=== PATIENT | female | born 1960 | race Caucasian/White ===

== ENCOUNTER 2016-11-24 09:38 | Emergency (ER) | payer SELFPAY ==
[~2016-11-24] VITALS: Ht 167.6 cm; Wt 46.5 kg
[~2016-11-24 09:38] MED LIST: ADV50050 INHALATION; ALBU8.5H3 INH; AZIT1PAC12 PO; AZIT250T94 PO; AZIT500T3 PO; CLIN-73 PO; FLUC150T17 PO; FLUT12HF2 IH; GUAI118L94 PO; IBUP-1542 PO; IBUP800T25 PO; NYST1000 PO; OXYC-281 PO; PRED20TA PO; RTPRO NEB; TIOT18CA INHALATION; TYL500 PO
[2016-11-24 09:42] VITALS: Ht 167.6 cm; Wt 46.5 kg
[2016-11-24] MEDS ORDERED: ALBUTEROL 0.5% (NEB) 2.5 MG/0.5 ML AMP NEB STA (10:01)
[2016-11-24] MEDS ORDERED: IPRATROPIUM (NEB) 0.5 MG/2.5 ML AMP NEB STA (10:01)
--- NOTE | 2016-11-24 10:06 | ERD ---
ER Documentation Chief Complaint Date/Time DATE: 11/24/16 TIME: 10:[address] , cough and CWP X 1 week, hx of COPD sats 92%. HPI 56-year-old female with history of COPD, smoking comes emergency room sore throat, cough and shortness of breath. Patient states she began having a cough and sore throat a week ago, has been using her inhalers however ran out of albuterol. Patient states that her sore throat is causing her to have pain in the center of her chest. She is not had any fevers, chills. ROS All systems reviewed and are negative except as per history of present illness. Medications Home Meds Active Scripts Promethazine/Phenyleph/Codeine (Zgciokwwjswc-NK-Maethbe Syrup) 118 Ml Syrup, 1- 2 TSP PO Q6, #4 OZ Prov:SHONNA RODRIGUEZ PA-C 11/24/16 Albuterol Sulfate* (Proair HFA*) 8.5 Gm Hfa.aer.ad, 2 PUFF INH Q4, #1 INHALER Prov:SHONNA RODRIGUEZ PA-C 11/24/16 Prednisone* (Prednisone*) 20 Mg Tab, 40 MG PO DAILY for 4 Days, TAB Prov:SHONNA RODRIGUEZ PA-C 11/24/16 Ibuprofen* (Motrin*) 600 Mg Tab, 600 MG PO Q6H Y for PAIN AND OR ELEVATED TEMP, #30 TAB Prov:REYES GONZALEZ NP 05/11/16 Fluconazole* (Diflucan*) 150 Mg Tablet, 150 MG PO ONCE, #1 TAB Prov:REYES GONZALEZ NP 05/11/16 Nystatin (Nystatin) 100,000 Unit/1 Ml Oral.susp, 4 ML PO QID for 7 Days, OZ Swish and swallow Prov:REYES GONZALEZ NP 05/11/16 Azithromycin* (Zithromax*) 250 Mg Tablet, 250 MG PO .ZPACK DIRECTED, #6 TAB TAKE 500 MG (2 TABS) THE FIRST DAY THEN 250 MG (1 TAB) DAYS 2-5 Prov:REYES GONZALEZ NP 05/11/16 Oxycodone Hcl-Acetaminophen* (Percocet*) 5-325 Mg Tablet, 1 TAB PO TID for PAIN , #9 TAB Prov:BARBARA HERNANDEZ MD 05/04/16 Albuterol Sulfate* (Proair HFA*) 8.5 Gm Hfa.aer.ad, 2 PUFF INH Q6H Y for WHEEZING AND SOB, #1 INHALER Prov:BARBARA HERNANDEZ MD 05/04/16 Azithromycin* (Zithromax*) 500 Mg Tablet, 500 MG PO DAILY for 5 Days, TAB Prov:BARBARA HERNANDEZ MD 05/04/16 Prednisone* (Prednisone*) 20 Mg Tab, 20 MG PO BID for 5 Days, TAB Prov:BARBARA HERNANDEZ MD 05/04/16 Salmeterol Xinaf-Fluticasone* (Advair*) 500/50 Diskus Inhaler, 1 INH INHALATION BID, #1 INHALER Prov:REYES GONZALEZ NP 04/19/16 Tiotropium [place]* (Spiriva*) 18 Mcg Cap.w.dev, 1 CAP INHALATION DAILY, #30 CAP Prov:REYES GONZALEZ NP 04/19/16 Albuterol Sulfate* (Proair HFA*) 8.5 Gm Hfa.aer.ad, 2 PUFF INH Q4H Y for WHEEZING AND SOB, #1 INHALER Prov:REYES GONZALEZ NP 04/19/16 Albuterol Sulfate* (Proventil* Neb) 0.083% Neb, 2.5 MG NEB Q4 Y for SHORTNESS OF BREATH, #30 EA Prov:SHANEKA POLLARD 03/22/16 Albuterol Sulfate* (Proair HFA*) 8.5 Gm Hfa.aer.ad, 2 PUFF INH Q4, #1 INHALER Prov:SHANEKA POLLARD 03/22/16 Salmeterol Xinaf-Fluticasone* (Advair HFA*) 115/21 Aerosol Inhaler, 2 INH IH BID , #1 INHALER Prov:SHANEKA POLLARD 03/22/16 Prednisone* (Prednisone*) 20 Mg Tab, 40 MG PO DAILY for 4 Days, TAB Prov:SHANEKA POLLARD C 03/22/16 Clindamycin Hcl* (Clindamycin Hcl*) 300 Mg Capsule, 300 MG PO QID for 7 Days, CAP Prov:CHRISTIANA OLIVEROSC 02/22/16 Prednisone* (Prednisone*) 20 Mg Tab, 40 MG PO DAILY for 4 Days, TAB Prov:OLIVEROSCHRISTIANA Bushra WATTS 02/22/16 Albuterol Sulfate* (Proventil* Neb) 0.083% Neb, 2.5 MG NEB Q4 Y for SHORTNESS OF BREATH, #30 EA Prov:OLIVEROSCHRISTIANA Tomlinson PA-C 02/22/16 Azithromycin* (Azithromycin*) 1 G/Pkt Packet, 1 GM PO ONCE, #1 PACKET Prov:ARLINCHRISTIANA Bushra WATTS 02/22/16 Azithromycin* (Zithromax*) 250 Mg Tablet, 250 MG PO .ZPACK DIRECTED, #6 TAB TAKE 500 MG (2 TABS) THE FIRST DAY THEN 250 MG (1 TAB) DAYS 2-5 Prov:CELESTE GONZALEZ DO 01/18/16 Ibuprofen* (Motrin*) 800 Mg Tab, 800 MG PO Q6H Y for PAIN AND OR ELEVATED TEMP, #30 TAB Prov:CELESTE GONZALEZ DO 01/18/16 Acetaminophen* (Tylenol*) 500 Mg Tab, 500 MG PO Q4H Y for MILD PAIN LEVEL 1-3, # 30 TAB Prov:DAVID ABRAMS PA-C 01/16/16 Guaifenesin-Codeine Phosphate* (Guaifenesin* with Codeine Liq) 120 Ml Liquid, 5 ML PO Q4H for COUGH, #120 ML Prov:DAVID ABRAMS PA-C 01/16/16 Prednisone* (Prednisone*) 20 Mg Tab, 40 MG PO DAILY for 4 Days, TAB Prov:DAVID ABRAMS PA-C 01/16/16 Allergies Allergies: Coded Allergies: Penicillins (Verified Allergy, Unknown, 11/24/16) PMhx/Soc History of Surgery: Yes (appendectomy,Gilmer Mammoplasty) Anesthesia Reaction: No Hx Neurological Disorder: No Hx Respiratory Disorders: Yes (Asthma) Hx Cardiac Disorders: No Hx Psychiatric Problems: No Hx Miscellaneous Medical Probl: Yes (Bronchitis,Menopause(2012); copd) Hx Alcohol Use: Yes (Social) Hx Substance Use: No (Used to during her younger days) Hx Tobacco Use: Yes (quit 10 months ago 3 to 4 sticks/day) Smoking Status: Current every day smoker Physical Exam Vitals Vital Signs Date Time Temp Pulse Resp B/P Pulse Ox O2 Delivery O2 Flow Rate FiO2 11/24/16 11:52 98.3 77 113/55 92 Room Air 11/24/16 10:23 78 18 94 21 11/24/16 09:42 97.4 77 18 120/76 92 Physical Exam General: Well-developed, well-nourished. In mild respiratory distress. HEENT: Head is normocephalic, atraumatic. No scleral icterus. Pupils are equal , round, and reactive. Oral mucous membranes are moist. No pharyngeal erythema. Neck: Supple. Nontender. Lungs: Clear to auscultation. Normal air movement. Heart: Regular rate and rhythm. S1 and S2 are normal. No murmurs, gallops, or rubs. Abdomen: Soft, nontender, nondistended. Bowel sounds are normoactive. Extremities: No clubbing or cyanosis. Normal pulses. Moving extremities x 4. No weakness. Neurologic: Alert and oriented 3. No focal deficits. Skin: Normal turgor. No rash or lesions. Results 24 hrs Current Medications Medications (Trade) Dose Ordered Sig/Anders Route PRN Reason Start Time Stop Time Status Last Admin Dose Admin Albuterol (Proventil 0.5% (Neb)) 10 mg ONCE STAT NEB 11/24/16 10:01 11/24/16 10:04 DC 11/24/16 10:18 Ipratropium [place] (Atrovent 0.02% (Neb)) 1 mg ONCE STAT NEB 11/24/16 10:01 11/24/16 10:04 DC 11/24/16 10:19 Methylprednisolone Sodium Succinate (Solu-Medrol) 125 mg ONCE ONCE IM 11/24/16 10:30 11/24/16 10:31 DC 11/24/16 10:13 Chest X-ray 1V Interpreted by me as well as radiologist: Soft Tissue: No acute abnormalities Bones: No acute abnormalities Mediastinum/Cardiac Silhouette/Lungs: No acute abnormalities Procedures/MDM ED course: Patient was given Solu-Medrol 125 mg IM, breathing treatment albuterol 10 mg as well as Atrovent 1 mg was administered. MDM: 56-year-old female with a history of COPD comes in with another exacerbation to the sore throat and cough. Patient's sore throat and cough symptoms are likely from a viral upper respiratory infection. She reports history of small amount of blood-tinged sputum 2 days ago that is likely from sloughing, I doubt tuberculosis at this time. She was given an albuterol breathing treatment as well as Atrovent and Solu-Medrol in the emergency room and reports to be having significant improvement of her symptoms. EKG was also reviewed without any signs of ischemia or ST elevations are concerning for an acute coronary syndrome. Differentials also include pneumonia, chest x-ray was normal at this time. patient's oxygen saturation is stable, as she is a chronic COPD patient. Differentials include COPD, pneumonia, CHF, ACS. She is feeling much better at this time, vitals are stable, and can safely be managed on an outpatient basis. Smoking Cessation Therapy: Pt. was lectured for greater than 3 minutes on the health risks of continued smoking and the benefits of cessation. Departure Diagnosis: Primary Impression: COPD (chronic obstructive pulmonary disease) Additional Impressions: URI (upper respiratory infection) Encounter for smoking cessation counseling Condition: Good SHONNA RODRIGUEZ PA-C Nov 24, 2016 10:06 SHONNA RODRIGUEZ PA-C Nov 24, 2016 10:06
[2016-11-24] MEDS ORDERED: METHYLPREDNISOLONE 125 MG INJ IM ONE (10:30)
--- NOTE | 2016-11-24 11:25 | RADRPT ---
PROCEDURE: XR Chest. CLINICAL INDICATION: COPD. Dyspnea. TECHNIQUE: Single frontal chest x-ray. COMPARISON: Chest x-ray dated 02/21/2016 FINDINGS: The lungs are clear. No focal opacification is seen. The cardiomediastinal silhouette is unremarka ble. The osseous structures are unremarkable. IMPRESSION: 1. There is no acute cardiopulmonary process. 2. No significant change when compared to the prior study. RPTAT: HMJB .Barak Godinez MD, MD Date Time Electronically viewed and signed by .Barak Godinez MD, MD on 11/24/2016 11:25 .B/
[2016-11-24] MEDS ORDERED: PRED20TA PO (11:41)
[2016-11-24] MEDS ORDERED: TIOT18CA INHALATION (11:41)
[2016-11-24] MEDS ORDERED: ALBU8.5H3 INH (11:41)
[2016-11-24] MEDS ORDERED: ADV10050 INHALATION (11:41)
[2016-11-24] MEDS ORDERED: PROM118S PO (11:47)
[2016-11-24 11:52] VITALS: BP 113/55; PULSE 77; TEMP 98.3
== END 2016-11-24 12:02 | disposition home or self-care (01) ==
LOC: FTE 09:38
DX: J44.1 Chronic obstructive pulmonary disease with (acute) exacerbation (principal); J06.9 Acute upper respiratory infection, unspecified; F17.210 Nicotine dependence, cigarettes, uncomplicated; Z71.6 Tobacco abuse counseling
CPT/HCPCS: 71010; 93005; 94644; 96372; 99284; J2930

== ENCOUNTER 2018-04-26 00:09 | Inpatient (IN) | END 2018-05-21 20:15 | disposition home or self-care (01) | DRG 190 ==

== ENCOUNTER 2018-10-12 03:36 | Inpatient (IN) | END 2018-10-19 20:10 | disposition home or self-care (01) | DRG 190 ==

== ENCOUNTER 2018-11-22 18:50 | Inpatient (IN) | payer OTHER ==
[~2018-11-22] VITALS: Ht 165.1 cm; Wt 50.1 kg
[~2018-11-22 18:50] MED LIST changes: -ALBU8.5H3 INH; +ALBU8.5H8 INH; -AZIT1PAC12 PO; -AZIT250T94 PO; -AZIT500T3 PO; -CLIN-73 PO; -FLUC150T17 PO; -FLUT12HF2 IH; -GUAI118L94 PO; -IBUP-1542 PO; -IBUP800T25 PO; -NYST1000 PO; -OXYC-281 PO; -PRED20TA PO; +PRED50TA PO; -RTPRO NEB; +TIOT18CA INH; -TIOT18CA INHALATION; -TYL500 PO; +ZOLP5TAB PO
[2018-11-22 23:30] VITALS: BP 116/69; PULSE 104; RESP 16
[2018-11-23] MEDS ORDERED: PANT40TA3 PO (00:01)
[2018-11-23 00:20] VITALS: Ht 165.1 cm; Wt 50.1 kg
[2018-11-23] MEDS: ZOLPIDEM 5 MG TAB PO PRN ×2 (00:56→20:55)
[2018-11-23] MEDS ORDERED: NACL 0.9% 3 ML SYG IV SCH (01:00)
[2018-11-23] MEDS ORDERED: NON-FORMULARY/PATIENT OWN MED (Salmeterol Xinaf-Fluticasone* (Advair*) 1 INH) INHALATION SCH (01:00)
[2018-11-23] MEDS ORDERED: ONDANSETRON 4 MG INJ IV PRN (01:00)
[2018-11-23] MEDS ORDERED: ACETAMINOPHEN 325 MG TAB PO PRN (01:00)
[2018-11-23] MEDS ORDERED: ALBUTEROL/IPRATROPIUM (NEB) 3 ML AMP HHN PRN ×2 (01:00)
[2018-11-23 01:45] VITALS: BP 98/55; PULSE 115; RESP 18
--- NOTE | 2018-11-23 03:24 | NUR ---
ADMISSION NOTES : Received a direct admit from [facility] with chief complaint of SOB and COPD exacerbation.Diagnosed with Pneumonia. Patient is alert,oriented and ambulatory. Ushered to assigned room. Per EMT,patient's heart rate range from 112-116 beats/min. No complained of pain at this time but requesting for Ambien for sleeping. Routine admission assessment and questionnaires done, photos were taken per protocol. Specimen for nares was obtained and sent to the lab. Instructed to call fo assistance. Placed on fall precaution risk.All needs met and attended. Will continue to monitor.
--- NOTE | 2018-11-23 04:16 | HP ---
Date/Time of Note Date/Time of Note DATE: 11/23/18 TIME: 04:14 Assessment/Plan VTE Prophylaxis Pharmacological prophylaxis: heparin Lines/Catheters IV Catheter Type (from Nrs): Saline Lock Assessment/Plan Assessment/Plan 58-year-old female with a history of COPD, hep C, antitrypsin deficiency transferred from outside hospital for shortness of breath, secondary to COPD exacerbation and possibly pneumonia as well PLAN Supplemental oxygen, bronchodilators, steroid, IV antibiotic Chest x-ray Chest CT as needed HPI/ROS Admit Date/Time Admit Date/Time Nov 22, 2018 at 23:06 Hx of Present Illness This is a 58-year-old female with a history of COPD, hep C, antitrypsin deficiency who initially presented on outside hospital complaining of shortness of breath. Patient was diagnosed with pneumonia and COPD exacerbation. She was transferred to [facility] for insurance reason. Patient was admitted here for COPD exacerbation about a month and half ago. PMH/Family/Social Past Medical History Medications Current Medications IV Flush (NS 3 ml) 3 ml PER PROTOCOL IV ; Start 11/23/18 at 01:00 Ondansetron HCl (Zofran Inj) 4 mg Q6H PRN IV NAUSEA AND/OR VOMITING; Start 11/23/18 at 01:00 Acetaminophen (Tylenol Tab) 650 mg Q6H PRN PO PAIN LEVEL 1-3 OR FEVER; Start 11/23/18 at 01:00 Albuterol/ Ipratropium (Duoneb) 3 ml Q2H RESP THERAPY PRN HHN SHORTNESS OF BREATH; Start 11/23/18 at 01:00 Pantoprazole (Protonix Tab) 40 mg DAILY@0600 PO ; Start 11/23/18 at 06:00 Tiotropium [place] (Spiriva) 1 inh DAILY INH ; Start 11/23/18 at 09:00 Zolpidem Tartrate (Ambien) 5 mg QHS PRN PO INSOMNIA Last administered on 11/23/18at 00:56; Admin Dose 5 MG; Start 11/23/18 at 01:00 Miscellaneous Information 1 inh BID INHALATION ; Start 11/23/18 at 01:00; Status UNV Methylprednisolone Sodium Succinate (Solu-Medrol) 80 mg DAILY IV ; Start 11/23/18 at 09:00 Influenza Virus Vaccine Quadrival (Fluzone) 0.5 ml ONCE ONCE IM* ; Start 11/24/18 at 10:00; Stop 11/24/18 at 10:01 Coded Allergies: levofloxacin (Verified Allergy, Intermediate, 10/13/18) Red Rash at IV site Penicillins (Verified Allergy, Unknown, 04/25/18) Past Surgical History Past Surgical Hx: other Family History Significant Family History: no pertinent family hx Social History Smoking Status: Former smoker Exam/Review of Systems Vital Signs Vitals Vital Signs Date Temp Pulse Resp B/P (MAP) Pulse Ox O2 O2 Flow FiO2 Time Delivery Rate 11/23/18 98.2 115 18 98/55 (69) 93 01:45 Intake and Output 11/22/18 11/22/18 11/23/18 1515:00 23:00 07:00 IntakeIntake Total 100 ml BalanceBalance 100 ml Exam Exam Constitutional: other (no acute distress) Head: normocephalic Respiratory: other (slight decreased at bases) Cardiovascular: regular rate and rhythm Gastrointestinal: soft Extremities: normal pulses PMH/Family/Social Past Medical History Medical History: other (see hpi) Coded Allergies: No Known Drug Allergy (Verified Allergy, Unknown, 07/08/16) Past Surgical History Past Surgical Hx: other (see hpi) Family History Significant Family History: no pertinent family hx Social History Alcohol Use: other Smoking Status: Unknown if ever smoked Drug Use: other GAGAN MAYERS MD Nov 23, 2018 04:16
[2018-11-23] MEDS: PANTOPRAZOLE (EC) 40 MG TAB PO SCH (05:46)
[2018-11-23 07:26] VITALS: BP 97/57; PULSE 99; RESP 15
[2018-11-23] MEDS: METHYLPREDNISOLONE 125 MG INJ IV SCH (08:36)
[2018-11-23] MEDS: TIOTROPIUM 18 MCG CAPSULE INHA DEV INH SCH (08:38)
[2018-11-23] MEDS: AZITHROMYCIN 500MG/NS (PMX) 250 ML IVPB SCH (08:38)
[2018-11-23] MEDS ORDERED: FLUTICASONE/VILANTEROL 200-25 INH DEVICE INH SCH (09:00)
[2018-11-23 14:25] VITALS: BP 99/58; PULSE 91; RESP 15
[2018-11-23] MEDS ORDERED: morphine 2 MG INJ IV PRN (15:00)
--- NOTE | 2018-11-23 15:11 | PN ---
Date/Time of Note Date/Time of Note DATE: 11/23/18 TIME: 15:07 Assessment/Plan VTE Prophylaxis Risk score (from Ns)>0 risk: 1 SCD applied (from Ns): Yes Pharmacological prophylaxis: NA/contraindicated Pharm contraindication: low risk/ambulating Lines/Catheters [facility] Saline Lock Assessment/Plan Hospital Course 1. COPD exacerbation Patient with a history of antitrypsin deficiency Continue IV antibiotics and steroids Continue Spiriva and breathing treatments as needed Morphine for pleuritic pain 2. History of hep C No acute issues Prophylaxis: SCDs Result Diagram: 11/23/1862611/23/18626 Results 24hrs Laboratory Tests Test 11/23/18 06:27 White Blood Count 17.2 H Red Blood Count 4.28 Hemoglobin 13.4 Hematocrit 40.8 Mean Corpuscular Volume 95.3 Mean Corpuscular Hemoglobin 31.3 Mean Corpuscular Hemoglobin Concent 32.8 Red Cell Distribution Width 13.6 Platelet Count 173 Mean Platelet Volume 9.7 Immature Granulocytes % 1.300 H Neutrophils % 81.2 H Lymphocytes % 10.5 L Monocytes % 6.8 Eosinophils % 0.1 Basophils % 0.1 Nucleated Red Blood Cells % 0.0 Immature Granulocytes # 0.220 H Neutrophils # 14.0 H Lymphocytes # 1.8 Monocytes # 1.2 H Eosinophils # 0.0 Basophils # 0.0 Nucleated Red Blood Cells # 0.0 Sodium Level 144 Potassium Level 5.0 Chloride Level 108 Carbon Dioxide Level 30 Anion Gap 6 Blood Urea Nitrogen 24 H Creatinine 0.53 Est Glomerular Filtrat Rate mL/min > 60 Glucose Level 123 Calcium Level 10.3 H Phosphorus Level 3.6 Magnesium Level 2.3 Total Bilirubin 0.1 L Direct Bilirubin 0.00 Indirect Bilirubin 0.1 Aspartate Amino Transf (AST/SGOT) 49 H Alanine Aminotransferase (ALT/SGPT) 44 Alkaline Phosphatase 63 Total Protein 5.5 L Albumin 2.9 L Globulin 2.60 Albumin/Globulin Ratio 1.11 Subjective 24 Hr Interval Summary Respiratory: pleuritic pain, shortness of breath Exam/Review of Systems Vital Signs Vitals Vital Signs Date Temp Pulse Resp B/P (MAP) Pulse Ox O2 O2 Flow FiO2 Time Delivery Rate 11/23/18 98.4 91 15 99/58 (72) 92 Room Air 14:25 11/23/18 2.0 09:00 Intake and Output 11/22/18 11/22/18 11/23/18 1515:00 23:00 07:00 IntakeIntake Total 100 ml BalanceBalance 100 ml Exam Constitutional: alert, oriented Respiratory: clear to auscultation Cardiovascular: regular rate and rhythm Gastrointestinal: soft; No distended Musculoskeletal: nl extremities to inspection Medications Medications Current Medications IV Flush (NS 3 ml) 3 ml PER PROTOCOL IV ; Start 11/23/18 at 01:00 Ondansetron HCl (Zofran Inj) 4 mg Q6H PRN IV NAUSEA AND/OR VOMITING; Start 11/23/18 at 01:00 Acetaminophen (Tylenol Tab) 650 mg Q6H PRN PO PAIN LEVEL 1-3 OR FEVER; Start 11/23/18 at 01:00 Albuterol/ Ipratropium (Duoneb) 3 ml Q2H RESP THERAPY PRN HHN SHORTNESS OF BREATH; Start 11/23/18 at 01:00 Pantoprazole (Protonix Tab) 40 mg DAILY@0600 PO Last administered on 11/23/18at 05:46; Admin Dose 40 MG; Start 11/23/18 at 06:00 Tiotropium [place] (Spiriva) 1 inh DAILY INH Last administered on 11/23/18at 08:38; Admin Dose 1 INH; Start 11/23/18 at 09:00 Zolpidem Tartrate (Ambien) 5 mg QHS PRN PO INSOMNIA Last administered on 11/23/18at 00:56; Admin Dose 5 MG; Start 11/23/18 at 01:00 Methylprednisolone Sodium Succinate (Solu-Medrol) 80 mg DAILY IV Last administered on 11/23/18at 08:36; Admin Dose 80 MG; Start 11/23/18 at 09:00 Influenza Virus Vaccine Quadrival (Fluzone) 0.5 ml ONCE ONCE IM* ; Start 11/24/18 at 10:00; Stop 11/24/18 at 10:01 Azithromycin 250 ml @ 250 mls/hr DAILY IVPB Last administered on 11/23/18at 08:38; Admin Dose 250 MLS/HR; Start 11/23/18 at 09:00 Fluticasone/ Vilanterol (Breo Ellipta 200-25 Mcg Inh) 1 inh DAILY INH ; Start 11/23/18 at 09:00; Status Hold Morphine Sulfate (morphine) 2 mg Q4H PRN IV SEVERE PAIN LEVEL 7-10; Start 11/23/18 at 15:00 ALDO DARDEN Nov 23, 2018 15:11
[2018-11-23] MEDS: morphine SULFATE/PF (2 MG/2 ML) SYG IV PRN ×2 (15:25→19:20)
[2018-11-23] MEDS: CEFTRIAXONE 1 GM/50 ML (PMX) 50 ML IVPB SCH (17:15)
--- NOTE | 2018-11-23 18:24 | NUR ---
EOSS: PT STABLE THROUGHOUT SHIFT, ALL DUE MEDS GIVEN, HOURLY ROUNDING COMPLETED. WILL ENDORSE CARE OF PT TO ONCOMING GARMENT FITTER RN.
[2018-11-23 20:01] VITALS: BP 100/56; PULSE 74; RESP 16
[2018-11-24 02:17] VITALS: BP 103/61; PULSE 94; RESP 16
[2018-11-24] MEDS: PANTOPRAZOLE (EC) 40 MG TAB PO SCH (05:44)
--- NOTE | 2018-11-24 06:06 | NUR ---
EOSS: Patient remains stable. Ambien administered last night and slept most of the night. Denies any pain this shift. No other complaints at this time. Will endorse to morning nurse for continuity of care.
[2018-11-24 07:59] VITALS: BP 129/76; PULSE 75; RESP 18
[2018-11-24] MEDS: CEPASTAT LOZENGE MT PRN (09:44)
[2018-11-24] MEDS: AZITHROMYCIN 500MG/NS (PMX) 250 ML IVPB SCH (09:45)
[2018-11-24] MEDS: morphine SULFATE/PF (2 MG/2 ML) SYG IV PRN (09:45)
[2018-11-24] MEDS: TIOTROPIUM 18 MCG CAPSULE INHA DEV INH SCH (09:45)
[2018-11-24] MEDS: METHYLPREDNISOLONE 125 MG INJ IV SCH (09:53)
[2018-11-24] MEDS ORDERED: PROMETHAZINE/CODEINE 5ML CUP PO PRN (13:00)
[2018-11-24 14:00] VITALS: BP 125/75; PULSE 74; RESP 20
--- NOTE | 2018-11-24 14:30 | PN ---
Date/Time of Note Date/Time of Note DATE: 11/24/18 TIME: 14:28 Assessment/Plan VTE Prophylaxis Risk score (from Ns)>0 risk: 1 SCD applied (from Ns): Yes Pharmacological prophylaxis: NA/contraindicated Pharm contraindication: low risk/ambulating Lines/Catheters [facility] Saline Lock Urinary Cath still in place: No Assessment/Plan Hospital Course 1. COPD exacerbation Patient with persistent pleuritic chest pain Start Phenergan with codeine, continue morphine Patient with a history of antitrypsin deficiency Continue IV antibiotics and DC steroids Continue Spiriva and breathing treatments as needed 2. History of hep C No acute issues Prophylaxis: SCDs DC planning: Anticipate DC home tomorrow Result Diagram: 11/24/18 0611/24/18 0603 Results 24hrs Laboratory Tests Test 11/24/18 06:03 White Blood Count 15.3 H Red Blood Count 4.15 L Hemoglobin 12.9 Hematocrit 38.4 Mean Corpuscular Volume 92.5 Mean Corpuscular Hemoglobin 31.1 Mean Corpuscular Hemoglobin Concent 33.6 Red Cell Distribution Width 13.3 Platelet Count 151 Mean Platelet Volume 10.0 Immature Granulocytes % 2.000 H Neutrophils % 74.6 Lymphocytes % 14.3 L Monocytes % 8.7 Eosinophils % 0.1 Basophils % 0.3 Nucleated Red Blood Cells % 0.0 Immature Granulocytes # 0.310 H Neutrophils # 11.4 H Lymphocytes # 2.2 Monocytes # 1.3 H Eosinophils # 0.0 Basophils # 0.0 Nucleated Red Blood Cells # 0.0 Sodium Level 142 Potassium Level 4.2 Chloride Level 104 Carbon Dioxide Level 33 H Anion Gap 5 Blood Urea Nitrogen 28 H Creatinine 0.52 Est Glomerular Filtrat Rate mL/min > 60 Glucose Level 112 Calcium Level 10.0 Phosphorus Level 3.1 Magnesium Level 2.4 Subjective 24 Hr Interval Summary Respiratory: pleuritic pain Exam/Review of Systems Vital Signs Vitals Vital Signs Date Temp Pulse Resp B/P (MAP) Pulse Ox O2 O2 Flow FiO2 Time Delivery Rate 11/24/18 98.5 75 18 129/76 92 Room Air 07:59 (93) 11/23/18 2.0 09:00 Intake and Output 11/23/18 11/23/18 11/24/18 1515:00 23:00 07:00 IntakeIntake Total 850 ml 290 ml BalanceBalance 850 ml 290 ml Exam Constitutional: alert, oriented Respiratory: clear to auscultation Cardiovascular: regular rate and rhythm Gastrointestinal: soft; No distended Musculoskeletal: nl extremities to inspection Medications Medications Current Medications IV Flush (NS 3 ml) 3 ml PER PROTOCOL IV ; Start 11/23/18 at 01:00 Ondansetron HCl (Zofran Inj) 4 mg Q6H PRN IV NAUSEA AND/OR VOMITING; Start 11/23/18 at 01:00 Acetaminophen (Tylenol Tab) 650 mg Q6H PRN PO PAIN LEVEL 1-3 OR FEVER; Start 11/23/18 at 01:00 Albuterol/ Ipratropium (Duoneb) 3 ml Q2H RESP THERAPY PRN HHN SHORTNESS OF BREATH; Start 11/23/18 at 01:00 Pantoprazole (Protonix Tab) 40 mg DAILY@0600 PO Last administered on 11/24/18 05:44; Admin Dose 40 MG; Start 11/23/18 at 06:00 Tiotropium [place] (Spiriva) 1 inh DAILY INH Last administered on 11/24/18 09:45; Admin Dose 1 INH; Start 11/23/18 at 09:00 Zolpidem Tartrate (Ambien) 5 mg QHS PRN PO INSOMNIA Last administered on 11/23/18 20:55; Admin Dose 5 MG; Start 11/23/18 at 01:00 Methylprednisolone Sodium Succinate (Solu-Medrol) 80 mg DAILY IV Last administered on 11/24/18 09:53; Admin Dose 80 MG; Start 11/23/18 at 09:00 Azithromycin 250 ml @ 250 mls/hr DAILY IVPB Last administered on 11/24/18 09:45; Admin Dose 250 MLS/HR; Start 11/23/18 at 09:00 Fluticasone/ Vilanterol (Breo Ellipta 200-25 Mcg Inh) 1 inh DAILY INH ; Start 11/23/18 at 09:00; Status Hold Ceftriaxone Sodium 50 ml @ 100 mls/hr Q24H IVPB Last administered on 11/23/18 17:15; Admin Dose 100 MLS/HR; Start 11/23/18 at 17:00 Morphine Sulfate (morphine SULFATE (PF)) 2 mg Q4H PRN IV SEVERE PAIN LEVEL 7-10 Last administered on 1/4/19at 09:45; Admin Dose 2 MG; Start 11/23/18 at 15:21 Phenol (Cepastat Lozenge) 1 lozenge Q1H PRN MT SORE THROAT Last administered on 11/24/18at 09:44; Admin Dose 1 LOZENGE; Start 11/23/18 at 21:30 Promethazine HCl/ Codeine (Phenergan/ Codeine) 5 ml Q4H PRN PO COUGH; Start 11/24/18 at 13:00 ALDO DARDEN Nov 24, 2018 14:30
[2018-11-24] MEDS: morphine LIQ (10 MG/5 ML) CUP PO PRN ×2 (17:03→21:20)
[2018-11-24] MEDS: CEFTRIAXONE 1 GM/50 ML (PMX) 50 ML IVPB SCH (17:03)
--- NOTE | 2018-11-24 18:15 | NUR ---
EOSS: Patient is a/o x4, ambulatory with assist, call light within reach. PT had morphine given at 1700 for chest pain 7/10 after pain med given it decreased to 2/10. IV is intact to left foot. Side rails up x2. NO other signs of distress or discomfort noted.
[2018-11-24 20:15] VITALS: BP 109/53; PULSE 64; RESP 18
[2018-11-24] MEDS: ZOLPIDEM 5 MG TAB PO PRN (23:00)
[2018-11-25 01:44] VITALS: BP 128/79; PULSE 99; RESP 17
[2018-11-25 03:23] VITALS: PULSE 76
[2018-11-25] MEDS: PANTOPRAZOLE (EC) 40 MG TAB PO SCH (06:15)
[2018-11-25] MEDS: morphine LIQ (10 MG/5 ML) CUP PO PRN ×2 (06:24→20:14)
--- NOTE | 2018-11-25 06:50 | NUR ---
EOSS Pt medicated for pain x 2, partially effective. Bed alarm on, bed in lowest position, call light within reach, pt instructed to use call light before walking to restroom, due meds given. Pt uses NC O2 2 L prn. VSS.
[2018-11-25] MEDS: AZITHROMYCIN 500MG/NS (PMX) 250 ML IVPB SCH ×2 (09:00→09:48)
[2018-11-25 09:05] VITALS: BP 121/71; PULSE 83; RESP 18
[2018-11-25] MEDS: TIOTROPIUM 18 MCG CAPSULE INHA DEV INH SCH (09:48)
--- NOTE | 2018-11-25 10:45 | NUR ---
PT'S IV FOUND TO BE INFILTRATED. PER MD, NO NEED TO REINSERT, WILL CHANGE IV ABX TO PO. Addendum: 11/25/18 at 1132 by NATHALIA DONNELLY RN ALSO PER DR DARDEN, PT IS CLEARED FOR DISCHARGE. PER PT HER ROOMMATE WON'T BE HOME UNTIL TOMORROW AND PT DOES NOT HAVE KEYS WITH HER FOR HER APARTMENT. WILL D/C PT TOMORROW PER .
--- NOTE | 2018-11-25 10:49 | PN ---
Date/Time of Note Date/Time of Note DATE: 11/25/18 TIME: 10:47 Assessment/Plan VTE Prophylaxis Risk score (from Ns)>0 risk: 1 SCD applied (from Ns): Yes Pharmacological prophylaxis: NA/contraindicated Pharm contraindication: low risk/ambulating Lines/Catheters [facility] Saline Lock Urinary Cath still in place: No Assessment/Plan Hospital Course 1. COPD exacerbation Patient with persistent pleuritic chest pain Continue Phenergan with codeine, continue morphine Patient with a history of antitrypsin deficiency DC IV antibiotics and start Levaquin p.o. Continue Spiriva and breathing treatments as needed 2. History of hep C No acute issues Prophylaxis: SCDs DC planning: Anticipate DC home tomorrow Result Diagram: 11/24/1860211/24/18 0603 Subjective 24 Hr Interval Summary Respiratory: cough, pleuritic pain Exam/Review of Systems Vital Signs Vitals Vital Signs Date Temp Pulse Resp B/P (MAP) Pulse Ox O2 O2 Flow FiO2 Time Delivery Rate 11/25/18 98.5 83 18 121/71 100 Room Air 09:05 (88) 11/24/18 2.0 20:30 Intake and Output 11/24/18 11/24/18 11/25/18 1515:00 23:00 07:00 IntakeIntake Total 730 ml 410 ml 650 ml BalanceBalance 730 ml 410 ml 650 ml Exam Constitutional: alert, oriented Respiratory: clear to auscultation Cardiovascular: regular rate and rhythm Gastrointestinal: soft; No distended Musculoskeletal: nl extremities to inspection Medications Medications Current Medications IV Flush (NS 3 ml) 3 ml PER PROTOCOL IV ; Start 11/23/18 at 01:00 Ondansetron HCl (Zofran Inj) 4 mg Q6H PRN IV NAUSEA AND/OR VOMITING; Start 11/23/18 at 01:00 Acetaminophen (Tylenol Tab) 650 mg Q6H PRN PO PAIN LEVEL 1-3 OR FEVER; Start 11/23/18 at 01:00 Albuterol/ Ipratropium (Duoneb) 3 ml Q2H RESP THERAPY PRN HHN SHORTNESS OF BREATH; Start 11/23/18 at 01:00 Pantoprazole (Protonix Tab) 40 mg DAILY@0600 PO Last administered on 11/25/18at 06:15; Admin Dose 40 MG; Start 11/23/18 at 06:00 Tiotropium [place] (Spiriva) 1 inh DAILY INH Last administered on 11/25/18 09:48; Admin Dose 1 INH; Start 11/23/18 at 09:00 Zolpidem Tartrate (Ambien) 5 mg QHS PRN PO INSOMNIA Last administered on 11/24/18 23:00; Admin Dose 5 MG; Start 11/23/18 at 01:00 Azithromycin 250 ml @ 250 mls/hr DAILY IVPB Last administered on 11/24/18 09:45; Admin Dose 250 MLS/HR; Start 11/23/18 at 09:00 Fluticasone/ Vilanterol (Breo Ellipta 200-25 Mcg Inh) 1 inh DAILY INH ; Start 11/23/18 at 09:00; Status Hold Ceftriaxone Sodium 50 ml @ 100 mls/hr Q24H IVPB Last administered on 11/24/18 17:03; Admin Dose 100 MLS/HR; Start 11/23/18 at 17:00 Phenol (Cepastat Lozenge) 1 lozenge Q1H PRN MT SORE THROAT Last administered on 11/24/18 09:44; Admin Dose 1 LOZENGE; Start 11/23/18 at 21:30 Promethazine HCl/ Codeine (Phenergan/ Codeine) 5 ml Q4H PRN PO COUGH; Start 11/24/18 at 13:00 Morphine Sulfate (morphine) 6 mg Q4H PRN PO SEVERE PAIN LEVEL 7-10 Last administered on 11/25/18 06:24; Admin Dose 6 MG; Start 11/24/18 at 15:00 ALDO DARDEN Nov 25, 2018 10:49
[2018-11-25] MEDS ORDERED: LEVOFLOXACIN 500 MG TAB PO SCH (11:00)
[2018-11-25 14:37] VITALS: BP 117/71; PULSE 73; RESP 18
--- NOTE | 2018-11-25 14:58 | NUR ---
Endorsement of care received from nurse Lundberg. Patient rounded on awake alert and oreinted x4, denies pain. Pending azithromycin from pharmacy. Pharmacy called and medication is on its way.
[2018-11-25] MEDS: AZITHROMYCIN 250 MG TAB PO SCH (15:41)
[2018-11-25] MEDS: CEPASTAT LOZENGE MT PRN (17:12)
--- NOTE | 2018-11-25 18:00 | NUR ---
End of shift summary report: No events, MD planning for discharge tomorrow. Patient was switched to oral antibiotics. NO iv access, Dr. Hutchison ordered to leave iv access off because patient will d/c 11/26 and is no longer on iv medications. No other complaints. Continue to monitor respiratory status.
[2018-11-25 19:37] VITALS: BP 104/62; PULSE 69; RESP 14
[2018-11-26 01:21] VITALS: BP 95/55; PULSE 76; RESP 20
[2018-11-26] MEDS: PANTOPRAZOLE (EC) 40 MG TAB PO SCH (05:49)
--- NOTE | 2018-11-26 06:44 | NUR ---
EOSS VSS, due meds given, pt medicated for pain x 1 - effective, pt coughing, offered cough medication, she refused, bed alarm on, bed in lowest position, call light within reach, hourly roundings done. No IV access, MD aware. Possible discharge for today. Will endorse to next shift.
[2018-11-26] MEDS: morphine LIQ (10 MG/5 ML) CUP PO PRN (07:26)
[2018-11-26 07:47] VITALS: BP 108/68; PULSE 69; RESP 17
[2018-11-26] MEDS: AZITHROMYCIN 250 MG TAB PO SCH (08:10)
[2018-11-26] MEDS: TIOTROPIUM 18 MCG CAPSULE INHA DEV INH SCH (08:10)
[2018-11-26] MEDS ORDERED: AZIT500T2 PO ×2 (13:40→18:34)
--- NOTE | 2018-11-26 13:41 | PDOCDIS ---
Discharge Instructions CONDITION [id number] Patient Condition: [id number] Good HOME CARE INSTRUCTIONS: [id number] Diet Instructions: [id number] Regular ACTIVITY: [id number] Activity Restrictions: [id number] No Restrictions FOLLOW UP/APPOINTMENTS Follow-up Plan FOLLOW UP WITH YOUR PCP IN 1-2 WEEKS ALDO DARDEN Nov 26, 2018 13:41
[2018-11-26 14:20] VITALS: BP 111/69; PULSE 82; RESP 18
--- NOTE | 2018-11-26 15:48 | DS ---
Date/Time of Note Date/Time of Note DATE: 11/26/18 TIME: 15:43 Discharge Summary Admission/Discharge Info Admit Date/Time Nov 22, 2018 at 23:06 Discharge Date/Time November 26, 2018 Discharge Diagnosis 1. COPD exacerbationresolved Patient with persistent pleuritic chest pain Pain has improved with Phenergan with codeine Patient with a history of antitrypsin deficiency Status post IV antibiotics, DC with azithromycin Continue Spiriva 2. 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 Pain was controlled with Phenergan with codeine patient received IV antibiotics and a short course of steroids. Patient did have resolution of her pleuritic pain as well as cough, patient was stable for DC to home, on the day of discharge patient's vitals, labs of exam are stable patient has no acute complaints questions are answered. Home Meds Active Scripts Azithromycin* (Zithromax* Tri-Arturo) 500 Mg Tablet, 500 MG PO DAILY for 3 Days, #1 TAB Prov:ALDO DARDEN 11/26/18 Tiotropium [place]* (Spiriva*) 18 Mcg Cap.w.dev, 1 INH INH DAILY for 30 Days, #1 INH 5 Refills Prov:CHITRA TONY MD 05/18/18 Salmeterol Xinaf-Fluticasone* (Advair*) 500/50 Diskus Inhaler, 1 INH INHALATION BID, #1 INHALER 4 Refills Prov:CHITRA TONY MD 05/18/18 Albuterol Sulfate* (Proair HFA*) 8.5 Gm Hfa.aer.ad, 2 PUFF INH Q4H PRN for WHEEZING AND SOB, #1 INHALER 5 Refills Prov:CHITRA TONY MD 05/18/18 Reported Medications Pantoprazole* (Protonix*) 40 Mg Tablet.dr, 40 MG PO DAILY, TAB 11/23/18 Zolpidem Tartrate* (Ambien*) 5 Mg Tablet, 5 MG PO QHS PRN for INSOMNIA, #30 TAB 10/12/18 Follow-up Plan FOLLOW UP WITH YOUR PCP IN 1-2 WEEKS Primary Care Provider Not On Staff Doctor Time spent on discharge: > 30 minutes ALDO DARDEN Nov 26, 2018 15:48
--- NOTE | 2018-11-26 18:00 | NUR ---
While going over d/c papers, was informed by pt that pt's preferred pharmacy was switched from [facility] to [facility]. has already submitted prescription for zithromax and e prescribed to [facility] pharmacy. MD Hutchison made aware pt's pharmacy has changed to [facility]. will rewrite rx to new pharmacy.
[2018-11-26 20:00] VITALS: BP 143/88; PULSE 102; RESP 22
[2018-11-26] MEDS ORDERED: morphine 2 MG INJ IV STA (20:32)
[2018-11-26] MEDS: NITROGLYCERIN (SL) 0.4 MG TAB SL PRN ×2 (20:47→20:54)
[2018-11-26] MEDS ORDERED: morphine 4 MG/ML VIAL IV SCH (21:00)
--- NOTE | 2018-11-26 21:45 | NUR ---
Complaint of Chest pain: Patient complaint of chest pain , 8 /10 getting worst if she's coughing. EKG revealed - normal sinus rhythm. Patient has a discharged to home orders tonight but she claimed that she is not comfortable of going home. Her apartment were newly painted and she's worried about the strong odor and fumes . MD Bagley made aware and Hold the discharge orders tonight. Will continue to monitor.
--- NOTE | 2018-11-27 00:33 | NUR ---
Chest pain Upon initial assessment at start of shift, pt complained of chest pain 8/10. Blood pressure 143/88, HR 102. Pt was placed back on 2L O2 via nasal cannula. SpO2 95%. Dr. Bagley was contacted regarding chest pain and increase in blood pressure and heart rate. Orders received for Nitroglycerin SL x3 five minutes apart, stat 12-lead EKG, stat Troponin and CK MB blood draw. Morphine 2mg IV to be given if chest pain did not resolve with Nitroglycerin. This nurse administered two Nitroglycerin tabs and chest pain resolved. EKG showed normal sinus rhythm. Troponin and CK MB were within normal limits. Dr. Bagley was again contacted by comber tenderROSALINDA Cunningham (see previous note). Per Dr. Bagley discharge will be delayed until tomorrow morning.
[2018-11-27 02:00] VITALS: BP 103/58; PULSE 80; RESP 19
[2018-11-27] MEDS: PANTOPRAZOLE (EC) 40 MG TAB PO SCH (06:53)
--- NOTE | 2018-11-27 07:04 | NUR ---
Shift Summary Patient in no acute distress. Needs attended. Patient experienced chest pain during shift. Dr. Bagely notified, EKG showed normal sinus rhythm and Troponin, CK-MB negative. Discharge delayed until this morning. Will endorse care to next shift.
[2018-11-27 07:58] VITALS: BP 102/61; PULSE 73; RESP 16
[2018-11-27] MEDS: TIOTROPIUM 18 MCG CAPSULE INHA DEV INH SCH (09:00)
[2018-11-27] MEDS: AZITHROMYCIN 250 MG TAB PO SCH (09:08)
--- NOTE | 2018-11-27 12:24 | PN ---
Date/Time of Note Date/Time of Note DATE: 11/27/18 TIME: 12:23 Assessment/Plan VTE Prophylaxis Risk score (from Ns)>0 risk: 2 SCD applied (from Nsg): Yes Pharmacological prophylaxis: heparin Lines/Catheters IV Catheter Type (from Nrsg): Saline Lock Urinary Cath still in place: No Assessment/Plan Hospital Course Stable for discharge today Free to go home now Can complete abx as prescribed yestrday and continue bronchodilators Result Diagram: 11/24/1860211/24/18 0603 Results 24hrs Laboratory Tests Test 11/26/18 20:51 Creatinine Kinase MB (Mass) 0.30 Troponin I < 0.012 Subjective 24 Hr Interval Summary Free Text/Dictation SOB resolved, has chronic cough. Musculoskeletal pain with coughing Exam/Review of Systems Vital Signs Vitals Vital Signs Date Temp Pulse Resp B/P (MAP) Pulse Ox O2 O2 Flow FiO2 Time Delivery Rate 11/27/18 98.7 73 16 102/61 92 07:58 (75) 11/26/18 Nasal 2.0 20:00 Cannula Intake and Output 11/26/18 11/26/18 11/27/18 1414:59 22:59 06:59 IntakeIntake Total 480 ml 560 ml BalanceBalance 480 ml 560 ml Medications Medications Current Medications IV Flush (NS 3 ml) 3 ml PER PROTOCOL IV ; Start 11/23/18 at 01:00 Ondansetron HCl (Zofran Inj) 4 mg Q6H PRN IV NAUSEA AND/OR VOMITING; Start 11/23/18 at 01:00 Acetaminophen (Tylenol Tab) 650 mg Q6H PRN PO PAIN LEVEL 1-3 OR FEVER; Start 11/23/18 at 01:00 Albuterol/ Ipratropium (Duoneb) 3 ml Q2H RESP THERAPY PRN HHN SHORTNESS OF BREATH; Start 11/23/18 at 01:00 Pantoprazole (Protonix Tab) 40 mg DAILY@0600 PO Last administered on 11/27/18at 06:53; Admin Dose 40 MG; Start 11/23/18 at 06:00 Tiotropium [place] (Spiriva) 1 inh DAILY INH Last administered on 11/26/18at 08:10; Admin Dose 1 INH; Start 11/23/18 at 09:00 Zolpidem Tartrate (Ambien) 5 mg QHS PRN PO INSOMNIA Last administered on 11/24/18 23:00; Admin Dose 5 MG; Start 11/23/18 at 01:00 Fluticasone/ Vilanterol (Breo Ellipta 200-25 Mcg Inh) 1 inh DAILY INH ; Start 11/23/18 at 09:00; Status Hold Phenol (Cepastat Lozenge) 1 lozenge Q1H PRN MT SORE THROAT Last administered on 11/25/18 17:12; Admin Dose 1 LOZENGE; Start 11/23/18 at 21:30 Promethazine HCl/ Codeine (Phenergan/ Codeine) 5 ml Q4H PRN PO COUGH Last administered on 11/25/18 13:07; Admin Dose 5 ML; Start 11/24/18 at 13:00 Morphine Sulfate (morphine) 6 mg Q4H PRN PO SEVERE PAIN LEVEL 7-10 Last administered on 11/26/18 07:26; Admin Dose 6 MG; Start 11/24/18 at 15:00 Azithromycin (Zithromax) 500 mg DAILY PO Last administered on 11/27/18 09:08; Admin Dose 500 MG; Start 11/25/18 at 14:30 Nitroglycerin (Nitroglycerin (Sl Tab) 0.4 Mg) 1 tab Q5M PRN SL ANGINA Last administered on 11/26/18 20:54; Admin Dose 1 TAB; Start 11/26/18 at 21:00 CHITRA TONY MD Nov 27, 2018 12:24
[2018-11-27 14:45] VITALS: BP 107/68; PULSE 84; RESP 16
[2018-11-27] MEDS ORDERED: IOHEXOL 14.3 MG(I)/ML (ADULT) BTL PO ONE (15:00)
--- NOTE | 2018-11-27 18:56 | NUR ---
DISCHARGE NOTE: PT D/C'D HOME IN STABLE CONDITION VIA TAXI VOUCHER IN WHEELCHAIR ACCOMPANIED BY VOLUNTEER. ALL BELONGINGS SENT WITH PT. NO IV ACCESS. ID BAND REMOVED. ALL INSTRUCTIONS GIVEN, ALL QUESTIONS ANSWERED.
--- NOTE | 2018-11-29 11:54 | RADRPT ---
Vent Rate: 93 bpm RR Interval: 0 msec SC Interval: 130 msec QRS Duration: 74 msec QT Interval: 338 msec QTC Interval: 420 msec P-R-T [place]: 84 - 71 - 84 degrees Normal sinus rhythm Normal ECG Electronically Signed By: Derrell Rubin [id number]
[2018-12-27] MEDS ORDERED: PRED10TA PO (11:36)
== END 2018-11-27 19:00 | disposition home or self-care (01) | DRG 192 ==
LOC: 2NE 23:06
PROVIDERS: ADMIT Internal Medicine; ATTEND Internal Medicine
DX: J44.1 Chronic obstructive pulmonary disease with (acute) exacerbation (principal); E88.01 Alpha-1-antitrypsin deficiency
CPT/HCPCS: 71045; 74176; 80048; 80053; 82553; 83735; 84100; 84484; 85025; 87081; 90686; 93005; J0456; J0696; J2270; J2274; J2930; Q9967

== ENCOUNTER 2019-02-06 11:12 | Inpatient (IN) | payer OTHER ==
[~2019-02-06] VITALS: Ht 165.1 cm; Wt 49.2 kg
[~2019-02-06 11:12] MED LIST changes: +PANT40TA3 PO; +PRED10TA PO; -PRED50TA PO
[2019-02-06] MEDS ORDERED: ALBUTEROL 0.5% (NEB) 2.5 MG/0.5 ML AMP INH STA (11:45)
[2019-02-06] MEDS ORDERED: IPRATROPIUM (NEB) 0.5 MG/2.5 ML AMP INH STA (11:45)
[2019-02-06] MEDS ORDERED: SOD CHLORIDE 0.9% 1,000 ML IV STA (11:46)
[2019-02-06] MEDS ORDERED: OXYCODONE/ACETAMINOPHEN (5/325) TAB PO ONE (12:00)
--- NOTE | 2019-02-06 12:15 | ERD ---
ER Documentation Chief Complaint Chief Complaint DIRECT ADMIT. NO TELE BEDS. DX COPD HPI 58-year-old woman transferred here from [facility] for direct admission for COPD exacerbation. She was initially seen yesterday and diagnosed with COPD exacerbation and after bronchodilator treatment treatment in the ED she was discharged. She returned later that day with continued symptoms and decision was made to admit and transfer the patient to [facility]. Her x-ray yesterday was unremarkable and she received multiple doses of albuterol and methylprednisolone IV. She states she has right-sided chest an d back pain, wheezing, cough for a few days despite using albuterol pump. She denies recent antibiotic use, no calf or leg swelling, no headache or blurry vision. ROS All systems reviewed and are negative except as per history of present illness. Medications Home Meds Reported Medications Albuterol Sulfate* (Ventolin HFA*) 18 Gm Hfa.aer.ad, 2 PUFF INHALATION Q4H, #1 INHALER 02/06/19 Tiotropium [place]* (Spiriva*) 18 Mcg Cap.w.dev, 1 CAP INHALATION DAILY, #30 CAP 02/06/19 Salmeterol Xinaf-Fluticasone* (Advair*) 500/50 Diskus Inhaler, 1 INH INHALATION BID, #1 INHALER 02/06/19 Zolpidem Tartrate* (Ambien*) 5 Mg Tablet, 5 MG PO QHS PRN for INSOMNIA, #30 TAB 10/12/18 Discontinued Reported Medications Pantoprazole* (Protonix*) 40 Mg Tablet.dr, 40 MG PO DAILY, TAB 11/23/18 Discontinued Scripts Prednisone* (Prednisone*) 10 Mg Tab, 15 MG PO DAILY, #30 TAB Prov:CHICA GRAHAM MD 12/27/18 Tiotropium [place]* (Spiriva*) 18 Mcg Cap.w.dev, 1 INH INH DAILY for 30 Days, #1 INH 5 Refills Prov:CHITRA TONY MD 05/18/18 Salmeterol Xinaf-Fluticasone* (Advair*) 500/50 Diskus Inhaler, 1 INH INHALATION BID, #1 INHALER 4 Refills Prov:CHITRA TONY MD 05/18/18 Albuterol Sulfate* (Proair HFA*) 8.5 Gm Hfa.aer.ad, 2 PUFF INH Q4H PRN for WHEEZING AND SOB, #1 INHALER 5 Refills Prov:CHITRA TONY MD 05/18/18 Allergies Allergies: Coded Allergies: levofloxacin (Verified Allergy, Intermediate, 02/06/19) Red Rash at IV site Penicillins (Verified Allergy, Unknown, 02/06/19) PMhx/Soc COPD, chronic pain syndrome, osteoarthritis, anxiety History of Surgery: Yes (APPENDECTOMY, BILAT BREAST IMPLANTS) Anesthesia Reaction: No Hx Neurological Disorder: No Hx Respiratory Disorders: Yes (COPD, ASTHMA, COPD, PNA, BRONCHITIS) Hx Cardiac Disorders: Yes (HTN) Hx Psychiatric Problems: No Hx Miscellaneous Medical Probl: No Hx Alcohol Use: Yes Hx Substance Use: No Hx Tobacco Use: Yes FmHx Family History: No diabetes Physical Exam Vitals Vital Signs Date Temp Pulse Resp B/P (MAP) Pulse Ox O2 O2 Flow FiO2 Time Delivery Rate 02/06/19 86 18 92 21 11:55 02/06/19 97.9 87 17 107/74 99 11:22 (85) Physical Exam GENERAL: Well-developed, well-nourished, dyspneic, afebrile, appears dehydrated HEENT: Dry mucous membranes, pink conjunctiva, no cervical spine tenderness or step-off deformities NEURO: Alert and oriented 3, cranial nerves II through XII intact bilaterally, pupils equal round reactive to light, no focal deficits or facial asymmetry, sensation intact distally Strength 5/5 in upper and lower extremities bilaterally CARDIAC: Regular rate and rhythm, no murmurs rubs or gallops LUNGS: Diffuse wheezes bilaterally, no crackles or stridor ABDOMEN: Soft nontender, no guarding, no rigidity, no rebound, no psoas sign no obturator sign. SKIN: Warm and dry to touch, no abrasions, contusions, or hematomas, no lacerations, no ecchymosis, no target lesions, and without ulcers EXTREMITIES: No clubbing cyanosis or edema, calves are bilaterally symmetrical, no Homans sign, no popliteal cord sign. Distal pulses equal and bilateral PSYCH: Normal affect without agitation or irritability Result Diagram: 02/06/19 1227 02/06/19 1227 Results 24 hrs Laboratory Tests Test 02/06/19 12:27 White Blood Count 8.2 10^3/ul Red Blood Count 4.44 10^6/ul Hemoglobin 14.0 g/dl Hematocrit 42.1 % Mean Corpuscular Volume 94.8 fl Mean Corpuscular Hemoglobin 31.5 pg Mean Corpuscular Hemoglobin Concent 33.3 g/dl Red Cell Distribution Width 14.2 % Platelet Count 157 10^3/UL Mean Platelet Volume 9.6 fl Immature Granulocytes % 0.500 % Neutrophils % 86.6 % Lymphocytes % 11.5 % Monocytes % 1.2 % Eosinophils % 0.0 % Basophils % 0.2 % Nucleated Red Blood Cells % 0.0 /100WBC Immature Granulocytes # 0.040 10^3/ul Neutrophils # 7.1 10^3/ul Lymphocytes # 0.9 10^3/ul Monocytes # 0.1 10^3/ul Eosinophils # 0.0 10^3/ul Basophils # 0.0 10^3/ul Nucleated Red Blood Cells # 0.0 10^3/ul Sodium Level 142 mmol/L Potassium Level 4.1 mmol/L Chloride Level 111 mmol/L Carbon Dioxide Level 24 mmol/L Anion Gap 7 Blood Urea Nitrogen 20 mg/dl Creatinine 0.51 mg/dl Est Glomerular Filtrat Rate mL/min > 60 mL/min Glucose Level 157 mg/dl Calcium Level 9.9 mg/dl Total Bilirubin 0.4 mg/dl Direct Bilirubin 0.00 mg/dl Indirect Bilirubin 0.4 mg/dl Aspartate Amino Transf (AST/SGOT) 33 IU/L Alanine Aminotransferase (ALT/SGPT) 46 IU/L Alkaline Phosphatase 75 IU/L Troponin I < 0.012 ng/ml Total Protein 5.8 g/dl Albumin 3.2 g/dl Globulin 2.60 g/dl Albumin/Globulin Ratio 1.23 Lipase 31 U/L Current Medications Medications Dose Sig/Anders Start Time Status Last (Trade) Ordered Route PRN Stop Time Admin Dose Reason Admin Albuterol 10 mg ONCE STAT 02/06/19 DC 02/06/19 (Proventil INH 11:45 11:53 0.5% (Neb)) 02/06/19 11:47 Ipratropium 1 mg ONCE STAT 02/06/19 DC 02/06/19 [place] INH 11:45 11:53 (Atrovent 02/06/19 11:47 0.02% (Neb)) Sodium 1,000 ml @ Q1H STAT 02/06/19 DC 02/06/19 Chloride 1,000 mls/hr IV 11:46 12:12 02/06/19 12:45 Oxycodone/ 1 tab ONCE ONCE 02/06/19 DC 02/06/19 Acetaminophen PO 12:00 12:12 (Percocet 02/06/19 12:01 (5/ 325)) Ceftriaxone 50 ml @ ONCE ONCE 02/06/19 DC Sodium 100 mls/hr IVPB 12:30 02/06/19 12:59 Azithromycin 250 ml @ ONCE ONCE 02/06/19 250 mls/hr IVPB 12:30 02/06/19 13:29 Procedures/MDM IV line was established patient was placed on bus driver/monitor rhythm strip revealed a sinus rhythm at about 80 bpm with upright P and T waves. Patient was afebrile. Blood cultures have been ordered results are pending I will follow- up. I do not suspect sepsis. I administered albuterol 10 mg via nebulizer and ipratropium 1 mg via nebulizer, patient refused glucocorticoids but did receive IV methylprednisolone yesterday. 1 view chest x-ray performed, read by me reveals infiltrate of the right base, no pneumothorax, no air under the diaphragm EKG performed, read by me revealed a normal sinus rhythm at 84 bpm, normal axis, narrow QRS complex, no concerning ST elevations or depressions noted CBC and electrolytes were normal, liver function tests were normal, troponin was negative. Influenza swabs were negative I also administered 1 L normal saline IV for dehydration and Percocet 1 tablet p.o. I administered ceftriaxone 1 g IV and azithromycin 500 mg IV. Patient remains dyspneic and will be admitted to telemetry setting for continued medical management and bronchodilator therapy. Departure Diagnosis: Primary Impression: COPD with acute exacerbation Additional Impressions: Acute dehydration Pneumonia Pneumonia type: due to unspecified organism Laterality: right Lung location: lower lobe of lung Qualified Codes: J18.1 - Lobar pneumonia, unspecified organism Condition: BARBARA Salinas MD Feb 06, 2019 12:15
[2019-02-06] MEDS ORDERED: ADV50050 INHALATION (12:22)
[2019-02-06] MEDS ORDERED: TIOT18CA INHALATION (12:22)
[2019-02-06] MEDS ORDERED: ALBU18HF INHALATION (12:25)
[2019-02-06] MEDS ORDERED: AZITHROMYCIN 500MG/NS (PMX) 250 ML IVPB ONE (12:30)
[2019-02-06] MEDS ORDERED: CEFTRIAXONE 1 GM/50 ML (PMX) 50 ML IVPB ONE (12:30)
[2019-02-06] MEDS ORDERED: NACL 0.9% 3 ML SYG IV SCH (14:00)
[2019-02-06] MEDS ORDERED: ACETAMINOPHEN 325 MG TAB PO PRN (14:00)
[2019-02-06] MEDS ORDERED: ONDANSETRON 4 MG INJ IV PRN (14:00)
--- NOTE | 2019-02-06 14:14 | HP ---
Date/Time of Note Date/Time of Note DATE: 02/06/19 TIME: 14:04 Assessment/Plan VTE Prophylaxis SCD applied (from Nsg): Yes Pharmacological prophylaxis: NA/contraindicated Pharm contraindication: low risk/ambulating Assessment/Plan Assessment/Plan 58 yo woman with COPD presents in exacerbation #COPD exacerbation - Etiology: Unclear, may be due to viral or atypical bacterial infection - Bronchodilators - Got IV steroids at OSH, will do prednisone 40 daily here - Oxygen to keep sats >88% - Consult pulmonary #Pneumonia - Concern for pneumonia (despite clear CXR) due to high fevers at home and productive cough - Will continue ceftriaxone and azithro for now, likely can de-escalate to just azithro DVT: SCDs GI: None Result Diagram: 02/06/19 1227 02/06/19 1227 HPI/ROS Admit Date/Time Admit Date/Time 06 February 2019 Hx of Present Illness Ms. Roe is a pleasant 58 yo woman with history of COPD (possibly [id number]) transferred here from [facility] for COPD exacerbation. She was initially seen yesterday and diagnosed with COPD exacerbation and after bronchodilator treatment treatment in the [place] ED she was discharged. She returned later that day with continued symptoms and decision was made to admit and transfer the patient to [facility]. Her x-ray yesterday was unremarkable and she received multiple doses of albuterol and methylprednisolone IV. She was hospitalized here at [facility] from 12/17-12/27 for COPD exacerbation. After discharge she got a "courage machine" for chest physiotherapy. This helped mobilize secretions but she reports it caused chest discomfort and underarm pain. She stopped using the machine a few days ago. She was also discharged on a steroid taper but she says as she neared the end of the course, her worsening and shortness of breath began worsening. For several days she reports wheezing, shortness of breath, dry cough. She also had fevers last week up to 102 measured at home, along with severe migraine-type headaches lasting three days in a row. The worst of these heada ches resolved 2 days ago. In the ED she was afebrile, vitals unremarkable. Labs unremarkable, slightly increased WBC 12.0. CXR negative for pneumonia. ROS Denies weight loss, night sweats, anorexia, dysphagia, nausea, vomiting, chest pain/pressure/palpitations, abdominal pain, diarrhea, constipation, dysuria, hematuria, urinary frequency, skin rashes. PMH/Family/Social Past Medical History COPD Coded Allergies: levofloxacin (Verified Allergy, Intermediate, 02/06/19) Red Rash at IV site Penicillins (Verified Allergy, Unknown, 02/06/19) Past Surgical History Breast implants Appendectomy Past Surgical Hx: other Family History Significant Family History: no pertinent family hx Social History Alcohol Use: none Smoking Status: Former smoker Drug Use: none Exam/Review of Systems Vital Signs Vitals Vital Signs Date Temp Pulse Resp B/P (MAP) Pulse Ox O2 O2 Flow FiO2 Time Delivery Rate 02/06/19 86 18 92 21 11:55 02/06/19 97.9 107/74 11:22 (85) Exam Exam Gen: Well developed woman in no acute distress breathing comfortably on nasal cannula Eyes: PERRL, no icterus HEENT: Moist mucous membranes, clear oropharynx Neck: No lymphadenopathy, no JVD Card: Regular rate and rhythm, no murmurs Pulm: Coarse breath sounds and expiratory wheezing with significantly prolonged expiratory phase. Abd: Soft, nontender, nondistended. Ext: No cyanosis/clubbing/edema, good peripheral pulses Skin: What appears to be subcentimeter neuromas on the R wrist. CHICA GRAHAM MD Feb 06, 2019 14:14
[2019-02-06] MEDS ORDERED: ALBUTEROL/IPRATROPIUM (NEB) 3 ML AMP HHN PRN (14:30)
[2019-02-06] MEDS ORDERED: METHYLPREDNISOLONE (10 MG/ML) IV SYG IV SCH (14:30)
[2019-02-06] MEDS ORDERED: predniSONE 20 MG TAB PO ONE (17:30)
[2019-02-06 20:32] VITALS: BP 110/67; RESP 18
[2019-02-06 22:11] VITALS: Ht 165.1 cm; Wt 49.2 kg
[2019-02-06] MEDS ORDERED: traMADol 50 MG TAB PO PRN (23:00)
[2019-02-06 23:08] VITALS: BP 109/65; PULSE 101; RESP 18
[2019-02-07] VITALS (11 sets, daily range): BP systolic 111–114; BP diastolic 59–73; PULSE 71–103; RESP 18
[2019-02-07] MEDS: CALCIUM CARBONATE 500 MG CHEW TAB PO PRN ×3 (07:52→23:24)
[2019-02-07] MEDS: AZITHROMYCIN 250 MG TAB PO SCH (08:36)
[2019-02-07] MEDS: predniSONE 20 MG TAB PO SCH (08:36)
--- NOTE | 2019-02-07 10:36 | PN ---
Date/Time of Note Date/Time of Note DATE: 02/07/19 TIME: 10:34 Assessment/Plan VTE Prophylaxis Risk score (from Ns)>0 risk: 2 SCD applied (from Ns): Yes Pharmacological prophylaxis: NA/contraindicated Pharm contraindication: low risk/ambulating Lines/Catheters IV Catheter Type (from Nrs): Saline Lock Urinary Cath still in place: No Assessment/Plan Assessment/Plan 58 yo woman with COPD presents in exacerbation #COPD exacerbation - Etiology: Unclear, may be due to viral or atypical bacterial infection - Bronchodilators - Got IV steroids at OSH, will do prednisone 40 daily here - Oxygen to keep sats >88% - Consult pulmonary #Pneumonia - Concern for pneumonia (despite clear CXR) due to high fevers at home and productive cough - Will continue course of azithro for atypical organisms DVT: SCDs GI: None Result Diagram: 02/07/19 0740 02/07/19 0740 Subjective 24 Hr Interval Summary Free Text/Dictation No acute overnight events. Breathing comfortably on nasal cannula. Exam/Review of Systems Exam Vitals Vital Signs Date Temp Pulse Resp B/P (MAP) Pulse Ox O2 O2 Flow FiO2 Time Delivery Rate 02/07/19 97 08:04 02/07/19 Nasal 2.0 08:00 Cannula 02/07/19 98.0 18 111/68 97 07:35 (82) 02/06/19 21 11:55 Intake and Output 02/06/19 02/06/19 02/07/19 1515:00 23:00 07:00 IntakeIntake Total 250 ml BalanceBalance 250 ml Exam Gen: Well developed woman in no acute distress breathing comfortably on nasal cannula Eyes: PERRL, no icterus HEENT: Moist mucous membranes, clear oropharynx Neck: No lymphadenopathy, no JVD Card: Regular rate and rhythm, no murmurs Pulm: Expiratory wheezing throughout with significantly prolonged expiratory phase. Abd: Soft, nontender, nondistended. Ext: No cyanosis/clubbing/edema, good peripheral pulses Skin: What appears to be subcentimeter neuromas on the R wrist. Results Results 24hrs Laboratory Tests Test 02/06/19 12:27 02/07/19 07:40 White Blood Count 8.2 # 13.4 #H Red Blood Count 4.44 4.70 Hemoglobin 14.0 14.4 Hematocrit 42.1 44.4 Mean Corpuscular Volume 94.8 94.5 Mean Corpuscular Hemoglobin 31.5 30.6 Mean Corpuscular Hemoglobin Concent 33.3 32.4 Red Cell Distribution Width 14.2 14.0 Platelet Count 157 # 155 Mean Platelet Volume 9.6 10.4 Immature Granulocytes % 0.500 H 0.600 H Neutrophils % 86.6 H 83.7 H Lymphocytes % 11.5 L 9.2 L Monocytes % 1.2 6.4 Eosinophils % 0.0 0.0 Basophils % 0.2 0.1 Nucleated Red Blood Cells % 0.0 0.0 Immature Granulocytes # 0.040 H 0.080 H Neutrophils # 7.1 11.2 H Lymphocytes # 0.9 1.2 Monocytes # 0.1 L 0.9 Eosinophils # 0.0 0.0 Basophils # 0.0 0.0 Nucleated Red Blood Cells # 0.0 0.0 Sodium Level 142 143 Potassium Level 4.1 3.9 Chloride Level 111 H 111 H Carbon Dioxide Level 24 27 Anion Gap 7 5 Blood Urea Nitrogen 20 23 H Creatinine 0.51 0.51 Est Glomerular Filtrat Rate mL/min > 60 > 60 Glucose Level 157 136 Calcium Level 9.9 10.5 H Total Bilirubin 0.4 0.2 Direct Bilirubin 0.00 0.00 Indirect Bilirubin 0.4 0.2 Aspartate Amino Transf (AST/SGOT) 33 28 Alanine Aminotransferase (ALT/SGPT) 46 44 Alkaline Phosphatase 75 74 Troponin I < 0.012 Total Protein 5.8 L 5.8 L Albumin 3.2 L 3.3 Globulin 2.60 2.50 Albumin/Globulin Ratio 1.23 1.32 Lipase 31 Hemoglobin A1c 5.5 Phosphorus Level 3.2 Magnesium Level 2.4 Triglycerides Level 68 Cholesterol Level 188 LDL Cholesterol, Calculated 97 HDL Cholesterol 77 Cholesterol/HDL Ratio 2.4 Medications Medication Current Medications IV Flush (NS 3 ml) 3 ml PER PROTOCOL IV ; Start 02/06/19 at 14:00 Ondansetron HCl (Zofran Inj) 4 mg Q6H PRN IV NAUSEA/VOMITING; Start 02/06/19 at 14:00 Acetaminophen (Tylenol Tab) 650 mg Q6H PRN PO .PAIN 1-3 OR TEMP; Start 02/06/19 at 14:00 Azithromycin (Zithromax) 500 mg DAILY PO Last administered on 02/07/19 08:36; Admin Dose 500 MG; Start 02/07/19 at 09:00 Ceftriaxone Sodium 50 ml @ 100 mls/hr Q24H IVPB ; Start 02/07/19 at 13:30 Albuterol/ Ipratropium (Duoneb) 3 ml Q4H RESP THERAPY PRN HHN SHORTNESS OF BREATH; Start 02/06/19 at 14:30 Prednisone (Prednisone) 40 mg DAILY PO Last administered on 02/07/19 08:36; Admin Dose 40 MG; Start 02/07/19 at 09:00 Tramadol HCl (Ultram) 50 mg Q6H PRN PO MODERATE PAIN LEVEL 4-6 Last administered on 02/06/19 23:38; Admin Dose 50 MG; Start 02/06/19 at 23:00 Calcium Carbonate (Tums) 500 mg QID PRN PO indegesion Last administered on 02/07 07:52; Admin Dose 500 MG; Start 02/07/19 at 07:00 CHICA GRAHAM MD Feb 07, 2019 10:36
--- NOTE | 2019-02-07 10:48 | CONS ---
Assessment/Plan Assessment/Plan Assessment/Plan (Daily) Chest x-ray showing emphysematous changes. Assessment recommendations; 1. Patient admitted with recurrent COPD exacerbation with possibly acute bronchitis currently on appropriate treatment regimen. Continue current supportive care. Consultation Date/Type/Reason Admit Date/Time 06 February 2019 Date of Consultation: Feb 07, 2019 Type of Consult Pulmonary Patient is a pleasant 58-year-old white lady who came into the emergency room yesterday with a 2-week history of increasing shortness of breath with wheezing without any associated cough. Patient denies any fever, chills, body aches or myalgias. The patient has had multiple admissions at [facility] for COPD exacerbation. Past medical history; 1. Severe COPD Medications; reviewed. Allergies; as outlined above. Social history; patient is an ex-smoker. Family history; noncontributory. Occupational history; patient is on disability. Review of systems; denies any headache, compressive very scant postnasal drip. Complains of cough with green sputum production. Denies any hemoptysis. Any chest pain. Denies any fever or chills. Denies any abdominal pain, nausea or vomiting. Denies any diarrhea, melena or hematochezia. Complains of chronic easy skin bruising. Denies any urinary symptoms. Has gained some weight. General exam; middle-aged female, awake alert, currently in no distress. Has cushingoid facies. Date/Time of Note DATE: 02/07/19 TIME: 10:45 Past Medical History Home Meds Reported Medications Albuterol Sulfate* (Ventolin HFA*) 18 Gm Hfa.aer.ad, 2 PUFF INHALATION Q4H, #1 INHALER 02/06/19 Tiotropium [place]* (Spiriva*) 18 Mcg Cap.w.dev, 1 CAP INHALATION DAILY, #30 CAP 02/06/19 Salmeterol Xinaf-Fluticasone* (Advair*) 500/50 Diskus Inhaler, 1 INH INHALATION BID, #1 INHALER 02/06/19 Zolpidem Tartrate* (Ambien*) 5 Mg Tablet, 5 MG PO QHS PRN for INSOMNIA, #30 TAB 10/12/18 Discontinued Reported Medications Pantoprazole* (Protonix*) 40 Mg Tablet.dr, 40 MG PO DAILY, TAB 11/23/18 Discontinued Scripts Prednisone* (Prednisone*) 10 Mg Tab, 15 MG PO DAILY, #30 TAB Prov:CHICA GRAHAM MD 12/27/18 Tiotropium [place]* (Spiriva*) 18 Mcg Cap.w.dev, 1 INH INH DAILY for 30 Days, #1 INH 5 Refills Prov:CHITRA TONY MD 05/18/18 Salmeterol Xinaf-Fluticasone* (Advair*) 500/50 Diskus Inhaler, 1 INH INHALATION BID, #1 INHALER 4 Refills Prov:CHITRA TONY MD 05/18/18 Albuterol Sulfate* (Proair HFA*) 8.5 Gm Hfa.aer.ad, 2 PUFF INH Q4H PRN for WHEEZING AND SOB, #1 INHALER 5 Refills Prov:CHITRA TONY MD 05/18/18 Medications Current Medications IV Flush (NS 3 ml) 3 ml PER PROTOCOL IV ; Start 02/06/19 at 14:00 Ondansetron HCl (Zofran Inj) 4 mg Q6H PRN IV NAUSEA/VOMITING; Start 02/06/19 at 14:00 Acetaminophen (Tylenol Tab) 650 mg Q6H PRN PO .PAIN 1-3 OR TEMP; Start 02/06/19 at 14:00 Azithromycin (Zithromax) 500 mg DAILY PO Last administered on 02/07/19at 08:36; Admin Dose 500 MG; Start 02/07/19 at 09:00 Albuterol/ Ipratropium (Duoneb) 3 ml Q4H RESP THERAPY PRN HHN SHORTNESS OF BREATH; Start 02/06/19 at 14:30 Prednisone (Prednisone) 40 mg DAILY PO Last administered on 02/07/19at 08:36; Admin Dose 40 MG; Start 02/07/19 at 09:00 Tramadol HCl (Ultram) 50 mg Q6H PRN PO MODERATE PAIN LEVEL 4-6 Last administered on 02/06/19at 23:38; Admin Dose 50 MG; Start 02/06/19 at 23:00 Calcium Carbonate (Tums) 500 mg QID PRN PO indegesion Last administered on 02/07/19at 07:52; Admin Dose 500 MG; Start 02/07/19 at 07:00 Allergies: Coded Allergies: levofloxacin (Verified Allergy, Intermediate, 02/06/19) Red Rash at IV site Penicillins (Verified Allergy, Unknown, 02/06/19) Past Surgical History Past Surgical Hx: other Social History Alcohol Use: none Smoking Status: Former smoker Drug Use: none Exam/Review of Systems Exam Vitals Vital Signs Date Temp Pulse Resp B/P (MAP) Pulse Ox O2 O2 Flow FiO2 Time Delivery Rate 02/07/19 97 08:04 02/07/19 Nasal 2.0 08:00 Cannula 02/07/19 98.0 18 111/68 97 07:35 (82) 02/06/19 21 11:55 Intake and Output 02/06/19 02/06/19 02/07/19 1515:00 23:00 07:00 IntakeIntake Total 250 ml BalanceBalance 250 ml Exam HEENT exam; supple neck, no JVD. No lymphadenopathy. Midline trachea. No thyromegaly. She has fair dentition. Cushingoid facies. Chest exam; diminished breath sounds throughout with mild expiratory wheezing. S1-S2 audible, no murmurs. Regular rhythm. Abdomen exam; soft, nontender. No organomegaly. Bowel sounds audible. Extremity exam; no peripheral edema. Patient does have multiple ecchymosis. MARKETING ASSISTANT exam; no focal deficit. Results Result Diagram: 02/07/19 0740 02/07/19 0740 Results 24hrs Laboratory Tests Test 02/06/19 12:27 02/07/19 07:40 White Blood Count 8.2 # 13.4 #H Red Blood Count 4.44 4.70 Hemoglobin 14.0 14.4 Hematocrit 42.1 44.4 Mean Corpuscular Volume 94.8 94.5 Mean Corpuscular Hemoglobin 31.5 30.6 Mean Corpuscular Hemoglobin Concent 33.3 32.4 Red Cell Distribution Width 14.2 14.0 Platelet Count 157 # 155 Mean Platelet Volume 9.6 10.4 Immature Granulocytes % 0.500 H 0.600 H Neutrophils % 86.6 H 83.7 H Lymphocytes % 11.5 L 9.2 L Monocytes % 1.2 6.4 Eosinophils % 0.0 0.0 Basophils % 0.2 0.1 Nucleated Red Blood Cells % 0.0 0.0 Immature Granulocytes # 0.040 H 0.080 H Neutrophils # 7.1 11.2 H Lymphocytes # 0.9 1.2 Monocytes # 0.1 L 0.9 Eosinophils # 0.0 0.0 Basophils # 0.0 0.0 Nucleated Red Blood Cells # 0.0 0.0 Sodium Level 142 143 Potassium Level 4.1 3.9 Chloride Level 111 H 111 H Carbon Dioxide Level 24 27 Anion Gap 7 5 Blood Urea Nitrogen 20 23 H Creatinine 0.51 0.51 Est Glomerular Filtrat Rate mL/min > 60 > 60 Glucose Level 157 136 Calcium Level 9.9 10.5 H Total Bilirubin 0.4 0.2 Direct Bilirubin 0.00 0.00 Indirect Bilirubin 0.4 0.2 Aspartate Amino Transf (AST/SGOT) 33 28 Alanine Aminotransferase (ALT/SGPT) 46 44 Alkaline Phosphatase 75 74 Troponin I < 0.012 Total Protein 5.8 L 5.8 L Albumin 3.2 L 3.3 Globulin 2.60 2.50 Albumin/Globulin Ratio 1.23 1.32 Lipase 31 Hemoglobin A1c 5.5 Phosphorus Level 3.2 Magnesium Level 2.4 Triglycerides Level 68 Cholesterol Level 188 LDL Cholesterol, Calculated 97 HDL Cholesterol 77 Cholesterol/HDL Ratio 2.4 Medications Medication Current Medications IV Flush (NS 3 ml) 3 ml PER PROTOCOL IV ; Start 02/06/19 at 14:00 Ondansetron HCl (Zofran Inj) 4 mg Q6H PRN IV NAUSEA/VOMITING; Start 02/06/19 at 14:00 Acetaminophen (Tylenol Tab) 650 mg Q6H PRN PO .PAIN 1-3 OR TEMP; Start 02/06/19 at 14:00 Azithromycin (Zithromax) 500 mg DAILY PO Last administered on 02/07/19at 08:36; Admin Dose 500 MG; Start 02/07/19 at 09:00 Albuterol/ Ipratropium (Duoneb) 3 ml Q4H RESP THERAPY PRN HHN SHORTNESS OF BREATH; Start 02/06/19 at 14:30 Prednisone (Prednisone) 40 mg DAILY PO Last administered on 02/07/19at 08:36; Admin Dose 40 MG; Start 02/07/19 at 09:00 Tramadol HCl (Ultram) 50 mg Q6H PRN PO MODERATE PAIN LEVEL 4-6 Last administered on 02/06/19at 23:38; Admin Dose 50 MG; Start 02/06/19 at 23:00 Calcium Carbonate (Tums) 500 mg QID PRN PO indegesion Last administered on 02/07/19at 07:52; Admin Dose 500 MG; Start 02/07/19 at 07:00 KELVIN WILLIAMSON Feb 07, 2019 10:48
[2019-02-07] MEDS ORDERED: CEFTRIAXONE 1 GM/50 ML (PMX) 50 ML IVPB SCH (13:30)
[2019-02-08 04:15] VITALS: BP 116/70; PULSE 66; RESP 18
[2019-02-08 07:44] VITALS: BP 115/74; PULSE 63; RESP 16
[2019-02-08] MEDS: predniSONE 20 MG TAB PO SCH (08:18)
[2019-02-08] MEDS: AZITHROMYCIN 250 MG TAB PO SCH (08:18)
--- NOTE | 2019-02-08 11:12 | CONS ---
Assessment/Plan Assessment/Plan Assessment/Plan (Daily) Assessment and recommendations; 1. Patient admitted with current COPD exacerbation with little clinical improvement since admission 2. Acute on chronic bronchitis. Continue current supportive care. Patient currently is not in a position to be discharged. Anticipate another 24-48-hour stay in the hospital. Consultation Date/Type/Reason Admit Date/Time Feb 06, 2019 at 12:04 Initial Consult Date 02/07/19 Type of Consult Pulmonary Patient is a pleasant 58-year-old white lady who came into the emergency room yesterday with a 2-week history of increasing shortness of breath with wheezing without any associated cough. Patient denies any fever, chills, body aches or myalgias. The patient has had multiple admissions at [facility] for COPD exacerbation. Past medical history; 1. Severe COPD Medications; reviewed. Allergies; as outlined above. Social history; patient is an ex-smoker. Family history; noncontributory. Occupational history; patient is on disability. Review of systems; denies any headache, compressive very scant postnasal drip. Complains of cough with green sputum production. Denies any hemoptysis. Any chest pain. Denies any fever or chills. Denies any abdominal pain, nausea or vomiting. Denies any diarrhea, melena or hematochezia. Complains of chronic easy skin bruising. Denies any urinary symptoms. Has gained some weight. General exam; middle-aged female, awake alert, currently in no distress. Has cushingoid facies. Date/Time of Note DATE: 02/08/19 TIME: 11:10 24 HR Interval Summary Free Text/Dictation Patient's condition has not much improved over the last 24 hours. Still complains of chest congestion wheezing shortness of breath upon exertion. General exam; middle-aged female, awake alert, currently in no distress. Exam/Review of Systems Exam Vitals Vital Signs Date Temp Pulse Resp B/P (MAP) Pulse Ox O2 O2 Flow FiO2 Time Delivery Rate 02/08/19 98.7 63 16 115/74 98 Room Air 07:44 (88) 02/07/19 2.0 08:00 02/06/19 11:55 Intake and Output 02/07/19 02/07/19 02/08/19 1414:59 22:59 06:59 IntakeIntake Total 240 ml 660 ml 300 ml BalanceBalance 240 ml 660 ml 300 ml Exam H EENT exam; supple neck, no JVD. No lymphadenopathy. Midline trachea. No thyromegaly. Patient has fair dentition. Cushingoid facies. Chest exam; diminished breath sounds throughout with mild expiratory wheezing more pronounced in left lower lobe. S1-S2 audible, no murmurs. Regular rhythm. Abdomen exam; soft, nontender. Bowel sounds audible. Extremity exam; no peripheral edema. Patient does have multiple ecchymosis. GUEST SERVICE HOST exam; no focal deficit. Results Result Diagram: 02/07/1973902/07/19739 Medications Medication Current Medications IV Flush (NS 3 ml) 3 ml PER PROTOCOL IV ; Start 02/06/19 at 14:00 Ondansetron HCl (Zofran Inj) 4 mg Q6H PRN IV NAUSEA/VOMITING; Start 02/06/19 at 14:00 Acetaminophen (Tylenol Tab) 650 mg Q6H PRN PO .PAIN 1-3 OR TEMP; Start 02/06/19 at 14:00 Azithromycin (Zithromax) 500 mg DAILY PO Last administered on 02/08/19 08:18; Admin Dose 500 MG; Start 02/07/19 at 09:00 Albuterol/ Ipratropium (Duoneb) 3 ml Q4H RESP THERAPY PRN HHN SHORTNESS OF BREATH; Start 02/06/19 at 14:30 Prednisone (Prednisone) 40 mg DAILY PO Last administered on 02/08/19 08:18; Admin Dose 40 MG; Start 02/07/19 at 09:00 Tramadol HCl (Ultram) 50 mg Q6H PRN PO MODERATE PAIN LEVEL 4-6 Last administ ered on 02/06/19 23:38; Admin Dose 50 MG; Start 02/06/19 at 23:00 Calcium Carbonate (Tums) 500 mg QID PRN PO indegesion Last administered on 02/07/19 23:24; Admin Dose 500 MG; Start 02/07/19 at 07:00 KELVIN WILLIAMSON Feb 08, 2019 11:12
[2019-02-08] MEDS: FLUTICASONE/VILANTEROL 100-25 INH SCH (14:05)
[2019-02-08] MEDS: TIOTROPIUM 18 MCG CAPSULE INHA DEV INH SCH (14:06)
[2019-02-08 15:20] VITALS: BP 102/56; PULSE 81; RESP 18
--- NOTE | 2019-02-08 15:36 | PN ---
Date/Time of Note Date/Time of Note DATE: 02/08/19 TIME: 15:34 Assessment/Plan VTE Prophylaxis Risk score (from Ns)>0 risk: 2 SCD applied (from Ns): Yes Pharmacological prophylaxis: NA/contraindicated Pharm contraindication: low risk/ambulating Lines/Catheters IV Catheter Type (from Nrsg): Saline Lock Urinary Cath still in place: No Assessment/Plan Assessment/Plan 58 yo woman with COPD presents in exacerbation #COPD exacerbation - Etiology: Unclear, may be due to viral or atypical bacterial infection - Bronchodilators - Got IV steroids at OSH, will do prednisone 40 daily here - Oxygen to keep sats >88% - Dr. Coffey following. #Pneumonia - Concern for pneumonia (despite clear CXR) due to high fevers at home and productive cough - Will continue course of azithro for atypical organisms DVT: SCDs GI: None Dispo: Per pulmonary recommendations. Result Diagram: 02/07/19 0740 02/07/19 0740 Subjective 24 Hr Interval Summary Free Text/Dictation No acute overnight events. Patient doing well. Still wheezing. Exam/Review of Systems Exam Vitals Vital Signs Date Temp Pulse Resp B/P (MAP) Pulse Ox O2 O2 Flow FiO2 Time Delivery Rate 02/08/19 98.1 81 18 102/56 98 Room Air 15:20 (71) 02/07/19 2.0 08:00 02/06/19 21 11:55 Intake and Output 02/07/19 02/07/19 02/08/19 1515:00 23:00 07:00 IntakeIntake Total 240 ml 660 ml 300 ml BalanceBalance 240 ml 660 ml 300 ml Exam Gen: Well developed woman in no acute distress breathing comfortably on nasal cannula Eyes: PERRL, no icterus HEENT: Moist mucous membranes, clear oropharynx Neck: No lymphadenopathy, no JVD Card: Regular rate and rhythm, no murmurs Pulm: Expiratory wheezing throughout with significantly prolonged expiratory phase. Abd: Soft, nontender, nondistended. Ext: No cyanosis/clubbing/edema, good peripheral pulses Skin: What appears to be subcentimeter neuromas on the R wrist. Medications Medication Current Medications IV Flush (NS 3 ml) 3 ml PER PROTOCOL IV ; Start 02/06/19 at 14:00 Ondansetron HCl (Zofran Inj) 4 mg Q6H PRN IV NAUSEA/VOMITING; Start 02/06/19 at 14:00 Acetaminophen (Tylenol Tab) 650 mg Q6H PRN PO .PAIN 1-3 OR TEMP; Start 02/06/19 at 14:00 Azithromycin (Zithromax) 500 mg DAILY PO Last administered on 02/08/19 08:18; Admin Dose 500 MG; Start 02/07/19 at 09:00 Albuterol/ Ipratropium (Duoneb) 3 ml Q4H RESP THERAPY PRN HHN SHORTNESS OF BREATH; Start 02/06/19 at 14:30 Prednisone (Prednisone) 40 mg DAILY PO Last administered on 02/08/19 08:18; Admin Dose 40 MG; Start 02/07/19 at 09:00 Tramadol HCl (Ultram) 50 mg Q6H PRN PO MODERATE PAIN LEVEL 4-6 Last administered on 02/06/19 23:38; Admin Dose 50 MG; Start 02/06/19 at 23:00 Calcium Carbonate (Tums) 500 mg QID PRN PO indegesion Last administered on 02/07/19 23:24; Admin Dose 500 MG; Start 02/07/19 at 07:00 Tiotropium [place] (Spiriva) 1 inh DAILY INH Last administered on 02/08/19 14:06; Admin Dose 1 INH; Start 02/08/19 at 14:00 Fluticasone/ Vilanterol (Breo Ellipta 100-25 Mcg Inh) 1 inh DAILY INH Last administered on 02/08/19 14:05; Admin Dose 1 INH; Start 02/08/19 at 14:00 CHICA GRAHAM MD Feb 08, 2019 15:36
[2019-02-08 19:57] VITALS: BP 113/70; PULSE 81; RESP 16
[2019-02-09] VITALS (7 sets, daily range): BP systolic 115–141; BP diastolic 64–80; PULSE 78–93; RESP 16–22
[2019-02-09] MEDS: AZITHROMYCIN 250 MG TAB PO SCH (08:24)
[2019-02-09] MEDS: predniSONE 20 MG TAB PO SCH (08:24)
[2019-02-09] MEDS: TIOTROPIUM 18 MCG CAPSULE INHA DEV INH SCH (08:25)
[2019-02-09] MEDS: FLUTICASONE/VILANTEROL 100-25 INH SCH (08:26)
--- NOTE | 2019-02-09 09:57 | CONS ---
Assessment/Plan Assessment/Plan Assessment/Plan (Daily) Assessment and recommendations; 1. Patient admitted with severe COPD exacerbation with history of multiple admissions to the hospital for same reason with acute bronchitis, clinically improving. Taper prednisone to 30 mg daily. Assess for home oxygen with ambulatory and rest pulse ox on room air. Consultation Date/Type/Reason Admit Date/Time Feb 06, 2019 at 12:04 Initial Consult Date 02/07/19 Type of Consult Pulmonary Patient is a pleasant 58-year-old white lady who came into the emergency room yesterday with a 2-week history of increasing shortness of breath with wheezing without any associated cough. Patient denies any fever, chills, body aches or myalgias. The patient has had multiple admissions at [facility] for COPD exacerbation. Past medical history; 1. Severe COPD Medications; reviewed. Allergies; as outlined above. Social history; patient is an ex-smoker. Family history; noncontributory. Occupational history; patient is on disability. Review of systems; denies any headache, compressive very scant postnasal drip. Complains of cough with green sputum production. Denies any hemoptysis. Any chest pain. Denies any fever or chills. Denies any abdominal pain, nausea or vomiting. Denies any diarrhea, melena or hematochezia. Complains of chronic easy skin bruising. Denies any urinary symptoms. Has gained some weight. General exam; middle-aged female, awake alert, currently in no distress. Has cushingoid facies. Date/Time of Note DATE: 02/09/19 TIME: 09:55 24 HR Interval Summary Free Text/Dictation Patient's condition is gradually getting better. Still complains of mild chest congestion and wheezing. General exam; middle-aged woman, awake alert. Currently no distress. Exam/Review of Systems Exam Vitals Vital Signs Date Temp Pulse Resp B/P (MAP) Pulse Ox O2 O2 Flow FiO2 Time Delivery Rate 02/09/19 97.8 89 22 125/64 93 Room Air 08:03 (84) 02/07/19 2.0 08:00 02/06/19 21 11:55 Intake and Output 02/08/19 02/08/19 02/09/19 1515:00 23:00 07:00 IntakeIntake Total 550 ml 600 ml BalanceBalance 550 ml 600 ml Exam HEENT exam; supple neck, no JVD. No lymphadenopathy. Midline trachea. No thyromegaly. Patient has fair dentition. Cushingoid facies. Chest exam; diminished breath sounds throughout with minimal expiratory wheezing. S1-S2 audible, no murmurs. Regular rhythm. Abdomen exam; soft, nontender. No organomegaly. Bowel sounds audible. Extremity exam; no peripheral edema. SECONDARY SCHOOL TEACHER exam; no focal deficit. Results Result Diagram: 02/07/1940 02/07/1940 Medications Medication Current Medications IV Flush (NS 3 ml) 3 ml PER PROTOCOL IV ; Start 02/06/19 at 14:00 Ondansetron HCl (Zofran Inj) 4 mg Q6H PRN IV NAUSEA/VOMITING; Start 02/06/19 at 14:00 Acetaminophen (Tylenol Tab) 650 mg Q6H PRN PO .PAIN 1-3 OR TEMP; Start 02/06/19 at 14:00 Azithromycin (Zithromax) 500 mg DAILY PO Last administered on 02/09/19 08:24; Admin Dose 500 MG; Start 02/07/19 at 09:00 Albuterol/ Ipratropium (Duoneb) 3 ml Q4H RESP THERAPY PRN HHN SHORTNESS OF BREATH; Start 02/06/19 at 14:30 Prednisone (Prednisone) 40 mg DAILY PO Last administered on 02/09/19 08:24; Admin Dose 40 MG; Start 02/07/19 at 09:00 Tramadol HCl (Ultram) 50 mg Q6H PRN PO MODERATE PAIN LEVEL 4-6 Last administered on 02/06/19 23:38; Admin Dose 50 MG; Start 02/06/19 at 23:00 Calcium Carbonate (Tums) 500 mg QID PRN PO indegesion Last administered on 02/07/19 23:24; Admin Dose 500 MG; Start 02/07/19 at 07:00 Tiotropium [place] (Spiriva) 1 inh DAILY INH Last administered on 02/09/19 08:25; Admin Dose 1 INH; Start 02/08/19 at 14:00 Fluticasone/ Vilanterol (Breo Ellipta 100-25 Mcg Inh) 1 inh DAILY INH Last administered on 02/09/19 08:26; Admin Dose 1 INH; Start 02/08/19 at 14:00 KELVIN WILLIAMSON 22, 2019 09:57
[2019-02-09] MEDS: CALCIUM CARBONATE 500 MG CHEW TAB PO PRN (14:37)
--- NOTE | 2019-02-09 15:39 | PN ---
Date/Time of Note Date/Time of Note DATE: 02/09/19 TIME: 15:35 Assessment/Plan VTE Prophylaxis Risk score (from Ns)>0 risk: 2 SCD applied (from Ns): Yes Pharmacological prophylaxis: NA/contraindicated Pharm contraindication: low risk/ambulating Lines/Catheters IV Catheter Type (from Nrsg): no longer has IV access Urinary Cath still in place: No Assessment/Plan Assessment/Plan 58 yo woman with COPD presents in exacerbation #COPD exacerbation - Etiology: Unclear, may be due to viral or atypical bacterial infection - Bronchodilators - Got IV steroids at OSH, will do prednisone 40 daily here - Oxygen to keep sats >88% - Dr. Coffey following. #Pneumonia - Concern for pneumonia (despite clear CXR) due to high fevers at home and productive cough - Will continue course of azithro for atypical organisms DVT: SCDs GI: None Dispo: D/C in 24-48 hours on prednisone 30mg daily. Result Diagram: 02/07/19 0740 02/07/19 0740 Subjective 24 Hr Interval Summary Free Text/Dictation No acute overnight events. Ambulated around unit, oxygen did not drop <89%. Offered discharge today but patient requests one more day. Exam/Review of Systems Exam Vitals Vital Signs Date Temp Pulse Resp B/P (MAP) Pulse Ox O2 O2 Flow FiO2 Time Delivery Rate 02/09/19 89 Room Air 13:42 02/09/19 98.0 80 22 116/67 12:12 (83) 02/07/19 2.0 08:00 02/06/19 21 11:55 Intake and Output 02/08/19 02/08/19 02/09/19 1515:00 23:00 07:00 IntakeIntake Total 550 ml 600 ml BalanceBalance 550 ml 600 ml Exam Gen: Well developed woman in no acute distress breathing comfortably on room air Eyes: PERRL, no icterus HEENT: Moist mucous membranes, clear oropharynx Neck: No lymphadenopathy, no JVD Card: Regular rate and rhythm, no murmurs Pulm: Expiratory wheezing throughout with significantly prolonged expiratory phase. Abd: Soft, nontender, nondistended. Ext: No cyanosis/clubbing/edema, good peripheral pulses Skin: What appears to be subcentimeter neuromas on the R wrist. Medications Medication Current Medications IV Flush (NS 3 ml) 3 ml PER PROTOCOL IV ; Start 02/06/19 at 14:00 Ondansetron HCl (Zofran Inj) 4 mg Q6H PRN IV NAUSEA/VOMITING; Start 02/06/19 at 14:00 Acetaminophen (Tylenol Tab) 650 mg Q6H PRN PO .PAIN 1-3 OR TEMP; Start 02/06/19 at 14:00 Azithromycin (Zithromax) 500 mg DAILY PO Last administered on 02/09/19 08:24; Admin Dose 500 MG; Start 02/07/19 at 09:00 Albuterol/ Ipratropium (Duoneb) 3 ml Q4H RESP THERAPY PRN HHN SHORTNESS OF BREATH; Start 02/06/19 at 14:30 Tramadol HCl (Ultram) 50 mg Q6H PRN PO MODERATE PAIN LEVEL 4-6 Last administered on 02/06/19 23:38; Admin Dose 50 MG; Start 02/06/19 at 23:00 Calcium Carbonate (Tums) 500 mg QID PRN PO indegesion Last administered on 02/09/19 14:37; Admin Dose 500 MG; Start 02/07/19 at 07:00 Tiotropium [place] (Spiriva) 1 inh DAILY INH Last administered on 02/09/19 08:25; Admin Dose 1 INH; Start 02/08/19 at 14:00 Fluticasone/ Vilanterol (Breo Ellipta 100-25 Mcg Inh) 1 inh DAILY INH Last administered on 02/09/19 08:26; Admin Dose 1 INH; Start 02/08/19 at 14:00 Prednisone (Prednisone) 30 mg DAILY PO ; Start 02/10/19 at 09:00 CHICA GRAHAM MD Feb 09, 2019 15:39
[2019-02-10 00:45] VITALS: BP 138/79; PULSE 98; RESP 20
[2019-02-10 02:41] VITALS: BP 109/65; PULSE 101; RESP 20
[2019-02-10 07:45] VITALS: BP 126/71; PULSE 82; RESP 18
[2019-02-10] MEDS: TIOTROPIUM 18 MCG CAPSULE INHA DEV INH SCH (08:46)
[2019-02-10] MEDS: FLUTICASONE/VILANTEROL 100-25 INH SCH (08:46)
[2019-02-10] MEDS: AZITHROMYCIN 250 MG TAB PO SCH (08:46)
[2019-02-10] MEDS ORDERED: predniSONE 10 MG TAB PO SCH (09:00)
[2019-02-10] MEDS ORDERED: ADV50050 INHALATION (13:50)
[2019-02-10] MEDS ORDERED: ALBU18HF INHALATION (13:50)
[2019-02-10] MEDS ORDERED: TIOT18CA INHALATION (13:50)
[2019-02-10] MEDS ORDERED: PRED10TA PO (13:50)
--- NOTE | 2019-02-10 13:54 | PDOCDIS ---
Discharge Instructions DIAGNOSIS Discharge Diagnosis COPD exacerbation CONDITION [id number] Patient Condition: [id number] Fair HOME CARE INSTRUCTIONS: [id number] Diet Instructions: [id number] Regular ACTIVITY: [id number] Activity Restrictions: [id number] No Restrictions FOLLOW UP/APPOINTMENTS Follow-up Plan 1. Take all medicine as prescribed, including prednisone 30mg daily. 2. See Dr. Kirk as scheduled. 3. Return to the emergency room if you develop worsening shortness of breath at rest and your albuterol doesn't help. CHICA GRAHAM MD Feb 10, 2019 13:54
[2019-02-10 14:23] VITALS: BP 104/58; PULSE 81; RESP 16
--- NOTE | 2019-02-10 15:53 | CONS ---
Consult Date/Type/Reason Admit Date/Time Feb 06, 2019 at 12:04 Initial Consult Date 02/07/19 Type of Consultation: Pulm Date/Time of Note DATE: 02/10/19 TIME: 15:51 Subjective Overall better, but no back to baseline yet. Objective Vitals Vital Signs Date Temp Pulse Resp B/P (MAP) Pulse Ox O2 O2 Flow FiO2 Time Delivery Rate 02/10/19 98.3 81 16 104/58 98 Room Air 14:23 (73) 02/09/19 21 16:01 02/07/19 2.0 08:00 Intake and Output 02/09/19 02/09/19 02/10/19 1515:00 23:00 07:00 IntakeIntake Total 760 ml 650 ml OutputOutput Total 960 ml BalanceBalance -200 ml 650 ml Exam HEENT: Neck supple; no JVD; no LAD CVS: RRR, S1 and S2 CHEST: + wheezing bilaterally ABD: Soft, NT, + BS EXT: No c/c/e Results/Medications Result Diagram: 02/07/19 0740 02/07/19 0740 Home Meds Active Scripts Prednisone* (Prednisone*) 10 Mg Tab, 30 MG PO DAILY, #14 TAB Prov:CHICA GRAHAM MD 02/10/19 Albuterol Sulfate* (Ventolin HFA*) 18 Gm Hfa.aer.ad, 2 PUFF INHALATION Q4H, #1 INHALER Prov:CHICA GRAHAM MD 02/10/19 Tiotropium [place]* (Spiriva*) 18 Mcg Cap.w.dev, 1 CAP INHALATION DAILY, #30 CAP Prov:CHICA GRAHAM MD 02/10/19 Salmeterol Xinaf-Fluticasone* (Advair*) 500/50 Diskus Inhaler, 1 INH INHALATION BID, #1 INHALER Prov:CHICA GRAHAM MD 02/10/19 Reported Medications Zolpidem Tartrate* (Ambien*) 5 Mg Tablet, 5 MG PO QHS PRN for INSOMNIA, #30 TAB 10/12/18 Discontinued Reported Medications Pantoprazole* (Protonix*) 40 Mg Tablet.dr, 40 MG PO DAILY, TAB 11/23/18 Discontinued Scripts Prednisone* (Prednisone*) 10 Mg Tab, 15 MG PO DAILY, #30 TAB Prov:CHICA GRAHAM MD 12/27/18 Tiotropium [place]* (Spiriva*) 18 Mcg Cap.w.dev, 1 INH INH DAILY for 30 Days, #1 INH 5 Refills Prov:CHITRA TONY MD 05/18/18 Salmeterol Xinaf-Fluticasone* (Advair*) 500/50 Diskus Inhaler, 1 INH INHALATION BID, #1 INHALER 4 Refills Prov:CHITRA TONY MD 05/18/18 Albuterol Sulfate* (Proair HFA*) 8.5 Gm Hfa.aer.ad, 2 PUFF INH Q4H PRN for WHEEZ ING AND SOB, #1 INHALER 5 Refills Prov:CHITRA TONY MD 05/18/18 Medications Current Medications IV Flush (NS 3 ml) 3 ml PER PROTOCOL IV ; Start 02/06/19 at 14:00 Ondansetron HCl (Zofran Inj) 4 mg Q6H PRN IV NAUSEA/VOMITING; Start 02/06/19 at 14:00 Acetaminophen (Tylenol Tab) 650 mg Q6H PRN PO .PAIN 1-3 OR TEMP Last administered on 02/10/19 08:45; Admin Dose 650 MG; Start 02/06/19 at 14:00 Azithromycin (Zithromax) 500 mg DAILY PO Last administered on 02/10/19 08:46; Admin Dose 500 MG; Start 02/07/19 at 09:00 Albuterol/ Ipratropium (Duoneb) 3 ml Q4H RESP THERAPY PRN HHN SHORTNESS OF BREATH Last administered on 02/09/19 15:58; Admin Dose 3 ML; Start 02/06/19 at 14:30 Tramadol HCl (Ultram) 50 mg Q6H PRN PO MODERATE PAIN LEVEL 4-6 Last administered on 02/06/19 23:38; Admin Dose 50 MG; Start 02/06/19 at 23:00 Calcium Carbonate (Tums) 500 mg QID PRN PO indegesion Last administered on 02/09/19 14:37; Admin Dose 500 MG; Start 02/07/19 at 07:00 Tiotropium [place] (Spiriva) 1 inh DAILY INH Last administered on 02/10/19 08:46; Admin Dose 1 INH; Start 02/08/19 at 14:00 Fluticasone/ Vilanterol (Breo Ellipta 100-25 Mcg Inh) 1 inh DAILY INH Last administered on 02/10/19at 08:46; Admin Dose 1 INH; Start 02/08/19 at 14:00 Prednisone (Prednisone) 30 mg DAILY PO Last administered on 02/10/19at 08:46; Admin Dose 30 MG; Start 02/10/19 at 09:00 Assessment/Plan Assessment/Plan (Daily) IMP: 1. COPD Exacerbation RECS: 1. CS taper 2. Complete course of abx 3. LABA/LAMA/ICS; and prn RITO 4. F/U in a week with HOUSTON Andrade MD Feb 10, 2019 15:53
--- NOTE | 2019-02-10 17:16 | DS ---
Date/Time of Note Date/Time of Note DATE: 02/10/19 TIME: 17:14 Discharge Summary Admission/Discharge Info Admit Date/Time Feb 06, 2019 at 12:04 Discharge Date/Time Feb 10, 2019 Discharge Diagnosis COPD exacerbation Patient Condition: Good Consults Dr. Coffey pulmonary Procedures None Hx of Present Illness Ms. Roe is a pleasant 58 yo woman with history of COPD (possibly [id number]) transferred here from [facility] for COPD exacerbation. She was initially seen yesterday and diagnosed with COPD exacerbation and after bronchodilator treatment treatment in the [place] ED she was discharged. She returned later that day with continued symptoms and decision was made to admit and transfer the patient to [facility]. Her x-ray yesterday was unremarkable and she received multiple doses of albuterol and methylprednisolone IV. She was hospitalized here at [facility] from 12/17-12/27 for COPD exacerbation. After discharge she got a "courage machine" for chest physiotherapy. This helped mobilize secretions but she reports it caused chest discomfort and underarm pain. She stopped using the machine a few days ago. She was also discharged on a steroid taper but she says as she neared the end of the course, her worsening and shortness of breath began worsening. For several days she reports wheezing, shortness of breath, dry cough. She also had fevers last week up to 102 measured at home, along with severe migraine-type headaches lasting three days in a row. The worst of these headaches resolved 2 days ago. In the ED she was afebrile, vitals unremarkable. Labs unremarkable, slightly increased WBC 12.0. CXR negative for pneumonia. Hospital Course The patient was started on prednisone 40mg daily. Continued bronchodilators. Dr. Coffey consulted. She did continue to have wheezing. Did not require oxygen; only desatted to minimum 89% when walking. Plan to discharge on prednisone 30, f/u wi Dr. Kirk. Home Meds Active Scripts Prednisone* (Prednisone*) 10 Mg Tab, 30 MG PO DAILY, #14 TAB Prov:CHICA GRAHAM MD 02/10/19 Albuterol Sulfate* (Ventolin HFA*) 18 Gm Hfa.aer.ad, 2 PUFF INHALATION Q4H, #1 INHALER Prov:CHICA GRAHAM MD 02/10/19 Tiotropium [place]* (Spiriva*) 18 Mcg Cap.w.dev, 1 CAP INHALATION DAILY, #30 CAP Prov:CHICA GRAHAM MD 02/10/19 Salmeterol Xinaf-Fluticasone* (Advair*) 500/50 Diskus Inhaler, 1 INH INHALATION BID, #1 INHALER Prov:CHICA GRAHAM MD 02/10/19 Reported Medications Zolpidem Tartrate* (Ambien*) 5 Mg Tablet, 5 MG PO QHS PRN for INSOMNIA, #30 TAB 10/12/18 Discontinued Reported Medications Pantoprazole* (Protonix*) 40 Mg Tablet.dr, 40 MG PO DAILY, TAB 11/23/18 Discontinued Scripts Prednisone* (Prednisone*) 10 Mg Tab, 15 MG PO DAILY, #30 TAB Prov:CHICA GRAHAM MD 12/27/18 Tiotropium [place]* (Spiriva*) 18 Mcg Cap.w.dev, 1 INH INH DAILY for 30 Days, #1 INH 5 Refills Prov:CHITRA TONY MD 05/18/18 Salmeterol Xinaf-Fluticasone* (Advair*) 500/50 Diskus Inhaler, 1 INH INHALATION BID, #1 INHALER 4 Refills Prov:CHITRA TONY MD 05/18/18 Albuterol Sulfate* (Proair HFA*) 8.5 Gm Hfa.aer.ad, 2 PUFF INH Q4H PRN for WHEEZING AND SOB, #1 INHALER 5 Refills Prov:CHITRA TONY MD 05/18/18 Follow-up Plan 1. Take all medicine as prescribed, including prednisone 30mg daily. 2. See Dr. Kirk as scheduled. 3. Return to the emergency room if you develop worsening shortness of breath at rest and your albuterol doesn't help. Primary Care Provider Not On Staff Doctor Time spent on discharge: > 30 minutes CHICA GRAHAM MD Feb 10, 2019 17:16
== END 2019-02-10 18:39 | disposition home or self-care (01) | DRG 190 ==
LOC: E/R 11:12 → TEL 12:04 → PP2 02-10 00:30
PROVIDERS: ADMIT Internal Medicine; ATTEND Internal Medicine
DX: J44.1 Chronic obstructive pulmonary disease with (acute) exacerbation (principal); J18.9 Pneumonia, unspecified organism; J44.0 Chronic obstructive pulmonary disease with (acute) lower respiratory infection; J20.9 Acute bronchitis, unspecified; G89.4 Chronic pain syndrome; I10 Essential (primary) hypertension; Z88.0 Allergy status to penicillin; Z87.891 Personal history of nicotine dependence
CPT/HCPCS: 36415; 71045; 80053; 80061; 83036; 83690; 83735; 84100; 84484; 85025; 87040; 87400; 93005; 94644; 94664; 94667; J0456; J0696; J7030; J7512

== ENCOUNTER 2019-07-02 10:31 | Inpatient (IN) | payer OTHER ==
[~2019-07-02] VITALS: Ht 160 cm; Wt 58.5 kg
[~2019-07-02 10:31] MED LIST changes: +ALBU18HF INHALATION; -ALBU8.5H8 INH; +ALPR0.254 PO; +ATOR10TA65 PO; +FURO20TA3 PO; +GLIP5TAB13 PO; +LINA5TAB PO; +MONT10TA24 PO; +MTF1000T PO; -PANT40TA3 PO; -TIOT18CA INH; +TIOT18CA INHALATION; +ZOLP10TA5 PO
[2019-07-02] MEDS ORDERED: ALBUTEROL 0.083% (NEB) 2.5 MG/3 ML AMP NEB STA (10:50)
[2019-07-02] MEDS ORDERED: SOD CHLORIDE 0.9% 1,000 ML IV STA (10:50)
[2019-07-02] MEDS ORDERED: METHYLPREDNISOLONE 125 MG INJ IV STA (10:50)
[2019-07-02] MEDS ORDERED: IPRATROPIUM (NEB) 0.5 MG/2.5 ML AMP NEB STA (10:50)
[2019-07-02] MEDS ORDERED: ACETAMINOPHEN 325 MG TAB PO PRN ×2 (13:00→16:00)
[2019-07-02] MEDS ORDERED: ONDANSETRON 4 MG INJ IV PRN ×2 (13:00→16:00)
[2019-07-02] MEDS ORDERED: ALBUTEROL/IPRATROPIUM (NEB) 3 ML AMP HHN SCH (14:00)
[2019-07-02] MEDS ORDERED: TIOTROPIUM 18 MCG CAPSULE INHA DEV INH SCH (16:00)
[2019-07-02] MEDS ORDERED: ALPRAZOLAM 0.25 MG TAB PO PRN (16:00)
[2019-07-02] MEDS ORDERED: NACL 0.9% 3 ML SYG IV SCH (16:00)
[2019-07-02] MEDS: ARFORMOTEROL TARTRATE 15MCG/2 ML AMP NEB SCH (16:00)
[2019-07-02] MEDS ORDERED: HYDROCODONE/APAP (5/325) TAB PO PRN (16:00)
[2019-07-02] MEDS ORDERED: NPH, HUMAN INSULIN ISOPHANE 3ML VIAL SC ONE (16:00)
[2019-07-02] MEDS ORDERED: ALBUTEROL/IPRATROPIUM (NEB) 3 ML AMP HHN PRN (16:00)
[2019-07-02] MEDS ORDERED: DOCUSATE SODIUM 100 MG CAP PO PRN (16:00)
[2019-07-02] MEDS: ALBUTEROL/IPRATROPIUM (NEB) 3 ML AMP HHN SCH ×2 (16:06→20:56)
[2019-07-02] MEDS ORDERED: GLUCAGON 1 MG INJ IM PRN (16:30)
[2019-07-02] MEDS ORDERED: GLUCOSE GEL 15 GRAM TUBE BUCCAL PRN (16:30)
[2019-07-02] MEDS ORDERED: GLUCOSE GEL 15 GRAM TUBE PO PRN ×2 (16:30)
[2019-07-02] MEDS ORDERED: DEXTROSE 50% 50 ML SYRINGE IV PRN ×2 (16:30)
[2019-07-02] MEDS: INSULIN ASPART [NOVOLOG] 3 ML PEN SC SCH ×2 (17:43→21:00)
[2019-07-02] MEDS ORDERED: METHYLPREDNISOLONE 40 MG INJ IV SCH (19:00)
[2019-07-02] MEDS: BUDESONIDE (NEB) 0.5MG/2ML AMP HHN SCH ×2 (20:56→21:04)
[2019-07-02] MEDS ORDERED: NON-FORMULARY/PATIENT OWN MED (Salmeterol Xinaf-Fluticasone* (Advair*) 1 INH) INHALATION SCH (21:00)
[2019-07-02] MEDS: FAMOTIDINE 20 MG TAB PO SCH (21:19)
[2019-07-02 22:16] VITALS: Ht 160 cm; Wt 58.5 kg
[2019-07-02 23:17] VITALS: BP 112/57; PULSE 54; RESP 17
[2019-07-03] MEDS: ACCU-CHEK XX SCH (02:16)
[2019-07-03 04:00] VITALS: BP 113/71; PULSE 99; RESP 18
[2019-07-03] MEDS: ARFORMOTEROL TARTRATE 15MCG/2 ML AMP NEB SCH ×3 (04:00→20:00)
[2019-07-03 07:40] VITALS: BP 109/74; PULSE 100; RESP 19
[2019-07-03] MEDS: INSULIN ASPART [NOVOLOG] 3 ML PEN SC SCH ×4 (08:01→20:57)
[2019-07-03] MEDS: ALBUTEROL/IPRATROPIUM (NEB) 3 ML AMP HHN SCH ×4 (08:18→20:18)
[2019-07-03] MEDS: FAMOTIDINE 20 MG TAB PO SCH ×2 (08:19→20:51)
[2019-07-03] MEDS: FUROSEMIDE 20 MG INJ IV SCH (08:21)
[2019-07-03] MEDS ORDERED: NPH, HUMAN INSULIN ISOPHANE 3ML VIAL SC SCH (09:00)
[2019-07-03] MEDS ORDERED: METHYLPREDNISOLONE 40 MG INJ IV SCH (09:00)
[2019-07-03] MEDS: LINAGLIPTIN 5 MG TABLET PO SCH (09:09)
[2019-07-03] MEDS: metFORMIN 500 MG TAB PO SCH ×2 (09:10→18:01)
[2019-07-03 11:44] VITALS: BP 101/70; PULSE 89; RESP 18
[2019-07-03 15:19] VITALS: BP 109/57; PULSE 100; RESP 18
[2019-07-03 19:45] VITALS: BP 108/69; PULSE 91; RESP 18
[2019-07-03] MEDS: BUDESONIDE (NEB) 0.5MG/2ML AMP HHN SCH (20:18)
[2019-07-03] MEDS: MONTELUKAST 10 MG TAB PO SCH (20:51)
[2019-07-03] MEDS: ATORVASTATIN 10 MG TAB PO SCH (20:51)
[2019-07-03 23:44] VITALS: BP 100/63; PULSE 94; RESP 18
[2019-07-04] MEDS: ACCU-CHEK XX SCH (02:20)
[2019-07-04 03:52] VITALS: BP 110/66; PULSE 93; RESP 18
[2019-07-04 07:30] VITALS: BP 105/62; PULSE 96; RESP 20
[2019-07-04] MEDS: BUDESONIDE (NEB) 0.5MG/2ML AMP HHN SCH ×2 (08:00→20:27)
[2019-07-04] MEDS: ARFORMOTEROL TARTRATE 15MCG/2 ML AMP NEB SCH ×2 (08:00→20:27)
[2019-07-04] MEDS: INSULIN ASPART [NOVOLOG] 3 ML PEN SC SCH ×4 (08:07→21:00)
[2019-07-04] MEDS: FAMOTIDINE 20 MG TAB PO SCH ×2 (08:12→21:59)
[2019-07-04] MEDS: metFORMIN 500 MG TAB PO SCH ×3 (08:12→17:57)
[2019-07-04] MEDS: LINAGLIPTIN 5 MG TABLET PO SCH (08:12)
[2019-07-04] MEDS: FUROSEMIDE 20 MG INJ IV SCH (08:12)
[2019-07-04] MEDS ORDERED: NPH, HUMAN INSULIN ISOPHANE 3ML VIAL SC SCH (09:00)
[2019-07-04] MEDS ORDERED: predniSONE 20 MG TAB PO SCH (09:00)
[2019-07-04] MEDS: ALBUTEROL/IPRATROPIUM (NEB) 3 ML AMP HHN SCH ×4 (09:00→20:27)
[2019-07-04 11:15] VITALS: BP 104/66; PULSE 95; RESP 20
[2019-07-04 15:34] VITALS: BP 118/72; PULSE 110; RESP 20
[2019-07-04] MEDS ORDERED: FAMOTIDINE 20 MG TAB PO ONE (17:30)
[2019-07-04 20:00] VITALS: BP 111/74; PULSE 105; RESP 18
[2019-07-04] MEDS: ATORVASTATIN 10 MG TAB PO SCH (21:59)
[2019-07-04] MEDS: MONTELUKAST 10 MG TAB PO SCH (21:59)
[2019-07-05] VITALS: BP 117/72; PULSE 88; RESP 20
[2019-07-05] MEDS: ACCU-CHEK XX SCH (02:00)
[2019-07-05 04:00] VITALS: BP 117/64; PULSE 78; RESP 20
[2019-07-05] MEDS ORDERED: PANTOPRAZOLE (EC) 40 MG TAB PO SCH (06:00)
[2019-07-05 07:28] VITALS: BP 116/71; PULSE 75; RESP 20
[2019-07-05] MEDS ORDERED: EMPAGLIFLOZIN 10 MG TABLET PO SCH (08:00)
[2019-07-05] MEDS: INSULIN ASPART [NOVOLOG] 3 ML PEN SC SCH (08:00)
[2019-07-05] MEDS: ARFORMOTEROL TARTRATE 15MCG/2 ML AMP NEB SCH (08:00)
[2019-07-05] MEDS: FUROSEMIDE 20 MG INJ IV SCH (09:00)
[2019-07-05] MEDS ORDERED: NPH, HUMAN INSULIN ISOPHANE 3ML VIAL SC SCH ×2 (09:00)
[2019-07-05] MEDS ORDERED: predniSONE 20 MG TAB PO SCH (09:00)
[2019-07-05] MEDS: metFORMIN 500 MG TAB PO SCH (09:52)
[2019-07-05] MEDS: FAMOTIDINE 20 MG TAB PO SCH (09:52)
[2019-07-05] MEDS: BUDESONIDE (NEB) 0.5MG/2ML AMP HHN SCH (10:06)
[2019-07-05] MEDS: ALBUTEROL/IPRATROPIUM (NEB) 3 ML AMP HHN SCH (10:06)
[2019-07-05 11:00] VITALS: BP 113/71; PULSE 81; RESP 20
[2019-07-05] MEDS: LINAGLIPTIN 5 MG TABLET PO SCH (11:00)
== END 2019-07-05 12:58 | disposition home or self-care (01) | DRG 190 ==
LOC: E/R 10:31 → 6WM 12:42 → CANRESERV 16:47 → EDBEDREQSVC 17:48
PROVIDERS: ADMIT Internal Medicine; ATTEND Internal Medicine
PROC: 3E0F7GC Introduction of Other Therapeutic Substance into Respiratory Tract, Via Natural or Artificial Opening (ICD-10-PCS; principal; 2019-07-02)
DX: J44.1 Chronic obstructive pulmonary disease with (acute) exacerbation (principal); J96.91 Respiratory failure, unspecified with hypoxia; E24.2 Drug-induced Cushing's syndrome; E88.01 Alpha-1-antitrypsin deficiency; Z87.891 Personal history of nicotine dependence; B19.20 Unspecified viral hepatitis C without hepatic coma; D69.6 Thrombocytopenia, unspecified; F41.9 Anxiety disorder, unspecified; E11.65 Type 2 diabetes mellitus with hyperglycemia; N28.1 Cyst of kidney, acquired
CPT/HCPCS: 36600; 71045; 80048; 80053; 80061; 82803; 82962; 83036; 83735; 84100; 84145; 84484; 85025; 93005; 93306; 94640; 94664; 96361; 96374; J1815; J1940; J2920; J2930; J7030; J7512